=== PATIENT | female | born 1970 | race Caucasian/White ===

== ENCOUNTER 2019-11-08 15:20 | Emergency (ER) | payer MEDICAID, SELFPAY ==
[2019-11-08 15:21] VITALS: BP 126/77; PULSE 70; RESP 16; TEMP 36.8; O2SAT 99; BMI 22.8
[2019-11-08 15:27] VITALS: BP 126/77; PULSE 73; RESP 18; O2SAT 100
--- NOTE | 2019-11-08 15:43 | W.ED.FEVER ---
Documented by User: Olena Garcia MD 11/09/19 06:10 HPI - Fever General: Chief Complaint: Fever Stated Complaint: INCREASED TEMP Time Seen by Provider: 11/08/19 15:23 History of Present Illness: HPI Narrative: This patient is a 49-year-old female presenting today with a reported fever of 106.8 off and on since Monday night. She reports that a few weeks ago she had a tooth that broke off and is infected. She said the whole side of her face on the left became swollen and there was pus coming out of the broken tooth. She took some fish amoxicillin for this infection. She also notes that she gave some of the fish amoxicillin to her dog who had an infection on his paw as well as his tail. She did this because she was not able to get to the doctor's office for her tooth. She did get her dog to the healthcare [facility] pricing [facility] and was told to stop giving him the fish amoxicillin in the back gave her some other medicine. The vet told her that the dog had a blood infection and that it might be contagious. Patient notes that she does not have any running water and has not been able to wash her hands like she normally would. She did get herself to the doctor on Monday and had a test for COVID. She was told she would get the results back in 12 days. She says that when she arrived at the doctor's office her temperature was below normal but within 30 minutes it was 106.8. She says that the doctor wanted her to come to the ER in an ambulance because of the fever however the patient had to go home and take care of her dog. She was finally able to get someone to watch her dog today and so presented to the hospital for evaluation. Her tooth is better but still has some discomfort and swelling. She says that she took ibuprofen about 30 minutes before she called the ambulance today. She is afebrile here as she was in the ambulance. She denies cough. She does have shortness of breath and pain on the left side of her chest. She denies nausea, vomiting, diarrhea. She denies urinary symptoms. She denies her skin rash. She denies headache. MD elicited complaint: fever and malaise Onset (ago): day(s) (5) Measured temperature: 106.8 F (Per patient her temperature has been this high at home and it was also this high at the doctor's office.) Context: recent antibiotic use (Fish amoxicillin) Associated symptoms: Reports chills and chest pain; Deny abdominal pain, flank pain, headache(s), nausea or vomiting Review of Systems General: Reports: 10 or more systems reviewed and unremarkable except in HPI and below Const: Reports: fever(s), chills and malaise; Denies: fatigue Eyes: Denies: change in vision ENMT: Denies: odynophagia Card: Reports: chest pain; Denies: swelling of feet/ankles Resp: Reports: dyspnea; Denies: productive cough or non-productive cough GI: Denies: abdominal pain, nausea or vomiting : Denies: flank pain or difficulty voiding Musc: Denies: neck pain or back pain Skin/Breast: Denies: rash Neuro: Denies: headache(s), numbness in extremities or weakness in extremities Jeison/Lymph: Denies: easy bruising or easy bleeding Physical Exam Const: COMMON NORMALS: no acute distress, patient oriented x3, no limitations and alert GENERAL APPEARANCE: cooperative and comfortable HENMT: HEAD & SCALP: normal to inspection FACE & SINUS: normal facial exam Eye: GENERAL EYE: appearance normal, both eyes and all related structures Neck/C-Spine: COMMON NORMALS: supple, no meningeal signs and no JVD Chest: COMMONS NORMALS: normal inspection of the chest Resp: COMMON NORMALS: normal respiratory effort, No use of accessory muscles and clear to auscultation bilaterally AUSCULTATION: clear to auscultation bilaterally Cardio: COMMON NORMALS: no JVD, regular rate, regular rhythm and No murmurs present (Cardio) RATE: regular rate RHYTHM: regular rhythm GI: COMMON NORMALS: Normal to inspection, nondistended, normoactive bowel sounds present, Soft to palpation and non-tender INSPECTION: Yes normal to inspection AUSCULTATION: Yes normoactive bowel sounds PALPATION: Yes Soft to palpation Back/Pelvis: COMMON NORMALS: thoracic and lumbar spine normal to inspection Extremity: COMMON NORMALS: normal to inspection Neuro: COMMON NORMALS: patient oriented x3, moves all extremities, no focal motor deficits and no sensory deficits noted SENSORIUM/ORIENTATION: Yes alert MENINGEAL SIGNS: Yes no meningeal signs Psych: COMMON NORMALS: mental status grossly normal, cooperative and normal affect Skin: COMMON NORMALS: no rashes or lesions noted and turgor normal GENERAL SKIN EXAM: no rashes or lesions noted and turgor normal Course Vital Signs: Vital signs: Vital Signs Temperature 76 F L 11/08/19 20:41 Pulse Rate 87 11/08/19 18:55 Respiratory Rate 16 11/08/19 20:41 Blood Pressure 128/84 11/08/19 20:41 Pulse Oximetry 97 11/08/19 20:41 MDM - Fever Lab Data: Labs: Lab Results 11/08/19 11/08/19 11/08/19 Range/Units 16:08 16:08 16:08 WBC 6.8 (4.0-10.0) 10^3/ uL RBC 4.35 (4.1-5.3) 10^6/u L Hgb 13.0 (11.5-15.3) g/dL Hct 40.8 (37.0-47.0) % MCV 93.8 (81-99) fL MCH 29.9 (28.0-34.0) pg MCHC 31.9 (30.0-36.0) g/dL RDW 13.2 (12.1-15.1) % Plt Count 250 (130-400) 10^3/c mm MPV 10.0 (7.4-10.4) fL Neut % (Auto) 41.3 % Lymph % (Auto) 48.0 % Garden % (Auto) 9.0 % Eos % (Auto) 0.9 % Baso % (Auto) 0.7 % Neut # (Auto) 2.80 (1.8-7.7) 10^3/u L Lymph # (Auto) 3.3 (0.8-4.8) 10^3/u L Garden # (Auto) 0.6 (0.2-0.9) 10^3/u L Eos # (Auto) 0.1 (0.0-0.8) 10^3/u L Baso # (Auto) 0.1 (0.0-0.1) 10^3/u L Nucleated RBC % (a uto) 0 % Nucleated RBCs # 0.0 /100WBC ESR (0-15) mm/hr Sodium 139 (136-145) mmol/L Potassium 3.8 (3.5-5.1) mmol/L Chloride 104 (98-107) mmol/L Carbon Dioxide 26 (22-29) mmol/L Anion Gap 12.8 (5-19) BUN 8 (6-20) mg/dL Creatinine 0.7 (0.5-0.9) mg/dL GFR Calculation 89.7 L (90-130) mL/min Glucose 103 (65-115) mg/dL Calculated Osmolal ity 284 L (285-295) mOsm/k g Lactate 0.6 (0.5-2.2) mmol/L Calcium 9.3 (8.5-10.5) mg/dL Total Bilirubin 0.2 (0.15-1.2) mg/dL AST 21 (0-32) U/L ALT 15 (0-33) U/L Alkaline Phosphata se 59 (35-105) IU/L C-Reactive Protein 24.1 H (0.0-4.9) mg/L Total Protein 7.2 (6.6-8.7) g/dL Albumin 3.9 (3.5-5.2) g/dL Globulin 3.3 (1.3-4.6) g/dL Procalcitonin 2.42 H (0-0.5) ng/mL Urine Color (Yellow) Urine Appearance (CLEAR) Urine pH (5-7) Ur Specific Gravit y (1.005-1.030) Urine Protein (Negative) Urine Glucose (UA) (Normal) Urine Ketones (Negative) Urine Blood (Negative) Urine Nitrate (Negative) Urine Bilirubin (NEGATIVE) Prot Sulfosalicyli c Acd (Negative) Urine Urobilinogen (Negative) mg/dL Ur Leukocyte Reyna ase (Negative) 11/08/19 11/08/19 Range/Units 16:08 17:23 WBC (4.0-10.0) 10^3/ uL RBC (4.1-5.3) 10^6/u L Hgb (11.5-15.3) g/dL Hct (37.0-47.0) % MCV (81-99) fL MCH (28.0-34.0) pg MCHC (30.0-36.0) g/dL RDW (12.1-15.1) % Plt Count (130-400) 10^3/c mm MPV (7.4-10.4) fL Neut % (Auto) % Lymph % (Auto) % Garden % (Auto) % Eos % (Auto) % Baso % (Auto) % Neut # (Auto) (1.8-7.7) 10^3/u L Lymph # (Auto) (0.8-4.8) 10^3/u L Garden # (Auto) (0.2-0.9) 10^3/u L Eos # (Auto) (0.0-0.8) 10^3/u L Baso # (Auto) (0.0-0.1) 10^3/u L Nucleated RBC % (a uto) % Nucleated RBCs # /100WBC ESR 31 H (0-15) mm/hr Sodium (136-145) mmol/L Potassium (3.5-5.1) mmol/L Chloride (98-107) mmol/L Carbon Dioxide (22-29) mmol/L Anion Gap (5-19) BUN (6-20) mg/dL Creatinine (0.5-0.9) mg/dL GFR Calculation (90-130) mL/min Glucose (65-115) mg/dL Calculated Osmolal ity (285-295) mOsm/k g Lactate (0.5-2.2) mmol/L Calcium (8.5-10.5) mg/dL Total Bilirubin (0.15-1.2) mg/dL AST (0-32) U/L ALT (0-33) U/L Alkaline Phosphata se (35-105) IU/L C-Reactive Protein (0.0-4.9) mg/L Total Protein (6.6-8.7) g/dL Albumin (3.5-5.2) g/dL Globulin (1.3-4.6) g/dL Procalcitonin (0-0.5) ng/mL Urine Color Yellow (Yellow) Urine Appearance Clear (CLEAR) Urine pH 8 H (5-7) Ur Specific Gravit y 1.010 (1.005-1.030) Urine Protein Neg (Negative) Urine Glucose (UA) Norm (Normal) Urine Ketones Negative (Negative) Urine Blood Neg (Negative) Urine Nitrate Negative (Negative) Urine Bilirubin Neg (NEGATIVE) Prot Sulfosalicyli c Acd Negative (Negative) Urine Urobilinogen Norm (Negative) mg/dL Ur Leukocyte Reyna ase Negative (Negative) Discharge Plan Discharge Patient Disposition: Home, Self-Care Clinical Impression: Fever of unknown origin Condition: Stable Prescriptions: New Levaquin 500 mg tablet 500 mg PO Q24H 7 Days Qty: 7 RF: 0 Hamlet 5-325 mg tablet 1 tab PO Q8H PRN (Reason: pain) Qty: 7 RF: 0 No Action Aspir-81 81 mg Tablet,Delayed Release (Dr/Ec) 81 mg PO DAILY RF: 0 Adult Multivitamin Gummies 200 mcg Tablet,Chewable 400 mcg PO DAILY RF: 0 melatonin 10 mg Tablet 20 mg PO BEDTIME RF: 0 potassium chloride 10 mEq Tablet Extended Release 10 meq PO DAILY PRN (Reason: unknown) RF: 0 Lasix 20 mg Tablet 20 mg PO DAILY PRN (Reason: Edema) RF: 0 ProAir HFA 90 mcg/actuation Hfa Aerosol Inhaler 2 puff INHALATION Q4H PRN (Reason: Shortness Of Breath) RF: 0 Excedrin Migraine 250-250-65 mg Tablet 3 - 4 tab PO PRN RF: 0 Fish Amoxil 500 mg PO BID RF: 0 Discharge Orders: Discharge Order (Routine); Ordered 11/08/19 Ordered By: Henri Jimenes Discharge Diet: Advance as tolerated Discharge Activity: Increase activity as tolerated Patient Instructions: Fever - Adult Activity Restrictions/Additional Instructions: Return or see your physician for continued fevers despite 2-3 doses of antibiotics, worsening pain despite treatment, other new or concerning symptoms. Discharge Date/Time: 11/08/19 20:44 Coding Level of Care Code ED Calender Operator Helper for g Fwd Exam Comprehensive Documented by User: Henri Jimenes, 11/09/19 00:56 HPI - Fever General: Chief Complaint: Fever Stated Complaint: INCREASED TEMP Time Seen by Provider: 11/08/19 15:23 Course Vital Signs: Vital signs: Vital Signs Temperature 76 F L 11/08/19 20:41 Pulse Rate 87 11/08/19 18:55 Respiratory Rate 16 11/08/19 20:41 Blood Pressure 128/84 11/08/19 20:41 Pulse Oximetry 97 11/08/19 20:41 MDM - Fever MDM Narrative: Medical decision making narrative: 49-year-old female checked out to me by Dr. Garcia she presents with significant left-sided chest pain, and reported temperature above 105 at home. She has had the temperature for several days. Her white blood cell count is 6.8. She does have elevation of her inflammatory markers. This may be because of a tooth infection, although this is less likely. She has been tested for COVID-19. Her chest pain is essentially resolved now. Chest pain was pleuritic in nature. CTA of the chest is ordered. It shows no pulmonary embolism. No infiltrates. No effusions. No pericardial fluid. She does have some pericarinal lymph nodes. Since her inflammatory markers are elevated, and she gives this history of fever, she will be allowed home on a broad-spectrum antibiotic. Levaquin should suffice. Lab Data: Attestation: I reviewed the patient's lab results. Labs: Lab Results 11/08/19 11/08/19 11/08/19 Range/Units 16:08 16:08 16:08 WBC 6.8 (4.0-10.0) 10^3/ uL RBC 4.35 (4.1-5.3) 10^6/u L Hgb 13.0 (11.5-15.3) g/dL Hct 40.8 (37.0-47.0) % MCV 93.8 (81-99) fL MCH 29.9 (28.0-34.0) pg MCHC 31.9 (30.0-36.0) g/dL RDW 13.2 (12.1-15.1) % Plt Count 250 (130-400) 10^3/c mm MPV 10.0 (7.4-10.4) fL Neut % (Auto) 41.3 % Lymph % (Auto) 48.0 % Garden % (Auto) 9.0 % Eos % (Auto) 0.9 % Baso % (Auto) 0.7 % Neut # (Auto) 2.80 (1.8-7.7) 10^3/u L Lymph # (Auto) 3.3 (0.8-4.8) 10^3/u L Garden # (Auto) 0.6 (0.2-0.9) 10^3/u L Eos # (Auto) 0.1 (0.0-0.8) 10^3/u L Baso # (Auto) 0.1 (0.0-0.1) 10^3/u L Nucleated RBC % (a uto) 0 % Nucleated RBCs # 0.0 /100WBC ESR (0-15) mm/hr Sodium 139 (136-145) mmol/L Potassium 3.8 (3.5-5.1) mmol/L Chloride 104 (98-107) mmol/L Carbon Dioxide 26 (22-29) mmol/L Anion Gap 12.8 (5-19) BUN 8 (6-20) mg/dL Creatinine 0.7 (0.5-0.9) mg/dL GFR Calculation 89.7 L (90-130) mL/min Glucose 103 (65-115) mg/dL Calculated Osmolal ity 284 L (285-295) mOsm/k g Lactate 0.6 (0.5-2.2) mmol/L Calcium 9.3 (8.5-10.5) mg/dL Total Bilirubin 0.2 (0.15-1.2) mg/dL AST 21 (0-32) U/L ALT 15 (0-33) U/L Alkaline Phosphata se 59 (35-105) IU/L C-Reactive Protein 24.1 H (0.0-4.9) mg/L Total Protein 7.2 (6.6-8.7) g/dL Albumin 3.9 (3.5-5.2) g/dL Globulin 3.3 (1.3-4.6) g/dL Procalcitonin 2.42 H (0-0.5) ng/mL Urine Color (Yellow) Urine Appearance (CLEAR) Urine pH (5-7) Ur Specific Gravit y (1.005-1.030) Urine Protein (Negative) Urine Glucose (UA) (Normal) Urine Ketones (Negative) Urine Blood (Negative) Urine Nitrate (Negative) Urine Bilirubin (NEGATIVE) Prot Sulfosalicyli c Acd (Negative) Urine Urobilinogen (Negative) mg/dL Ur Leukocyte Reyna ase (Negative) 11/08/19 11/08/19 Range/Units 16:08 17:23 WBC (4.0-10.0) 10^3/ uL RBC (4.1-5.3) 10^6/u L Hgb (11.5-15.3) g/dL Hct (37.0-47.0) % MCV (81-99) fL MCH (28.0-34.0) pg MCHC (30.0-36.0) g/dL RDW (12.1-15.1) % Plt Count (130-400) 10^3/c mm MPV (7.4-10.4) fL Neut % (Auto) % Lymph % (Auto) % Garden % (Auto) % Eos % (Auto) % Baso % (Auto) % Neut # (Auto) (1.8-7.7) 10^3/u L Lymph # (Auto) (0.8-4.8) 10^3/u L Garden # (Auto) (0.2-0.9) 10^3/u L Eos # (Auto) (0.0-0.8) 10^3/u L Baso # (Auto) (0.0-0.1) 10^3/u L Nucleated RBC % (a uto) % Nucleated RBCs # /100WBC ESR 31 H (0-15) mm/hr Sodium (136-145) mmol/L Potassium (3.5-5.1) mmol/L Chloride (98-107) mmol/L Carbon Dioxide (22-29) mmol/L Anion Gap (5-19) BUN (6-20) mg/dL Creatinine (0.5-0.9) mg/dL GFR Calculation (90-130) mL/min Glucose (65-115) mg/dL Calculated Osmolal ity (285-295) mOsm/k g Lactate (0.5-2.2) mmol/L Calcium (8.5-10.5) mg/dL Total Bilirubin (0.15-1.2) mg/dL AST (0-32) U/L ALT (0-33) U/L Alkaline Phosphata se (35-105) IU/L C-Reactive Protein (0.0-4.9) mg/L Total Protein (6.6-8.7) g/dL Albumin (3.5-5.2) g/dL Globulin (1.3-4.6) g/dL Procalcitonin (0-0.5) ng/mL Urine Color Yellow (Yellow) Urine Appearance Clear (CLEAR) Urine pH 8 H (5-7) Ur Specific Gravit y 1.010 (1.005-1.030) Urine Protein Neg (Negative) Urine Glucose (UA) Norm (Normal) Urine Ketones Negative (Negative) Urine Blood Neg (Negative) Urine Nitrate Negative (Negative) Urine Bilirubin Neg (NEGATIVE) Prot Sulfosalicyli c Acd Negative (Negative) Urine Urobilinogen Norm (Negative) mg/dL Ur Leukocyte Reyna ase Negative (Negative) Discharge Plan Discharge Patient Disposition: Home, Self-Care Clinical Impression: Fever of unknown origin Condition: Stable Prescriptions: New Levaquin 500 mg tablet 500 mg PO Q24H 7 Days Qty: 7 RF: 0 Hamlet 5-325 mg tablet 1 tab PO Q8H PRN (Reason: pain) Qty: 7 RF: 0 No Action Aspir-81 81 mg Tablet,Delayed Release (Dr/Ec) 81 mg PO DAILY RF: 0 Adult Multivitamin Gummies 200 mcg Tablet,Chewable 400 mcg PO DAILY RF: 0 melatonin 10 mg Tablet 20 mg PO BEDTIME RF: 0 potassium chloride 10 mEq Tablet Extended Release 10 meq PO DAILY PRN (Reason: unknown) RF: 0 Lasix 20 mg Tablet 20 mg PO DAILY PRN (Reason: Edema) RF: 0 ProAir HFA 90 mcg/actuation Hfa Aerosol Inhaler 2 puff INHALATION Q4H PRN (Reason: Shortness Of Breath) RF: 0 Excedrin Migraine 250-250-65 mg Tablet 3 - 4 tab PO PRN RF: 0 Fish Amoxil 500 mg PO BID RF: 0 Discharge Orders: Discharge Order (Routine); Ordered 11/08/19 Ordered By: Henri Jimenes Discharge Diet: Advance as tolerated Discharge Activity: Increase activity as tolerated Patient Instructions: Fever - Adult Activity Restrictions/Additional Instructions: Return or see your physician for continued fevers despite 2-3 doses of antibiotics, worsening pain despite treatment, other new or concerning symptoms. Discharge Date/Time: 11/08/19 20:44 Coding Level of Care Code ED Calender Operator Helper for Chg Fwd Exam Comprehensive
[2019-11-08 16:21] LABS: Basophils # 0.1 10^3/uL (0.0-0.1); Basophils % 0.7 %; Eosinophils # 0.1 10^3/uL (0.0-0.8); Eosinophils % 0.9 %; Hematocrit 40.8 % (37.0-47.0); Lymphocytes # 3.3 10^3/uL (0.8-4.8); Mean Corpuscular HGB Conc 31.9 g/dL (30.0-36.0); Mean Corpuscular Hemoglobin 29.9 pg (28.0-34.0); Mean Corpuscular Volume 93.8 fL (81-99); Monocytes # 0.6 10^3/uL (0.2-0.9); Neutrophils % 41.3 %; Nucleated Red Blood Cells % 0 %; Platelet Count 250 10^3/cmm (130-400); Red Blood Count 4.35 10^6/uL (4.1-5.3); Red Cell Distribution Width 13.2 % (12.1-15.1); White Blood Count 6.8 10^3/uL (4.0-10.0)
[2019-11-08 16:33] LABS: Lactate (Lactic Acid level) 0.6 mmol/L (0.5-2.2)
[2019-11-08 16:42] LABS: Procalcitonin 2.42 ng/mL (0-0.5)
[2019-11-08 16:54] LABS: Alanine Aminotransferase 15 U/L (0-33); Albumin Level 3.9 g/dL (3.5-5.2); Alkaline Phosphatase 59 IU/L (35-105); Anion Gap 12.8 (5-19); Aspartate Amino Transferase 21 U/L (0-32); Blood Urea Nitrogen 8 mg/dL (6-20); C Reactive Protein 24.1 mg/L (0.0-4.9); Calcium 9.3 mg/dL (8.5-10.5); Carbon Dioxide 26 mmol/L (22-29); Chloride 104 mmol/L (98-107); Globulin 3.3 g/dL (1.3-4.6); Glomerular Filtration Rate 89.7 mL/min (90-130); Glucose 103 mg/dL (65-115); Osmolality Calculated 284 mOsm/kg (285-295); Potassium 3.8 mmol/L (3.5-5.1); Sodium 139 mmol/L (136-145); Total Bilirubin 0.2 mg/dL (0.15-1.2); Total Protein 7.2 g/dL (6.6-8.7)
--- NOTE | 2019-11-08 16:55 | XRR_ITS ---
PROCEDURE INFORMATION: Exam: XR Chest, 1 View Exam date and time: 11/08/2019 5:08 PM Age: 49 years old Clinical indication: Chest pain; Additional info: Fever, chest pain TECHNIQUE: Imaging protocol: XR of the chest Views: 1 view. COMPARISON: No relevant prior studies available. FINDINGS: Lungs: Unremarkable. No consolidation. Pleural space: Unremarkable. No pleural effusion. No pneumothorax. Heart/Mediastinum: Unremarkable. No cardiomegaly. Bones/joints: Unremarkable. XR/XR chest 1V portable [id number] IMPRESSION: No acute findings.
[2019-11-08 17:34] LABS: Add Urine Microscopic? NO
--- NOTE | 2019-11-08 17:42 | CTR_ITS ---
PROCEDURE INFORMATION: Exam: CT Angiography Chest With Contrast Exam date and time: 11/08/2019 7:02 PM Age: 49 years old Clinical indication: Left-sided chest pain; Patient HX: C/O fever, SOB and L upper cp; Additional info: Fever, chest pain TECHNIQUE: Imaging protocol: Computed tomographic angiography of the chest with intravenous contrast. 3D rendering: MIP and/or 3D reconstructed images were created by the technologist. Radiation optimization: All CT scans at this facility use at least one of these dose optimization techniques: automated exposure control; mA and/or kV adjustment per patient size (includes targeted exams where dose is matched to clinical indication); or iterative reconstruction. Contrast material: OMNI 350; Contrast volume: 95 ml; Contrast route: INTRAVENOUS (IV); COMPARISON: CR XR chest 1V portable [id number] 11/08/2019 4:56 PM RADIATION DOSE METRICS: Total DLP (mGy-cm): 484.94 FINDINGS: There are mild degenerative changes of the spine. There is dependent atelectasis. There is no focal consolidation. There is no pleural effusion. There is no pneumothorax. There are no suspicious pulmonary nodules. The central airways are normal in caliber. There is a 9 mm nodule with partial rim calcification in the left lobe of the thyroid gland. This is likely benign. Given its small size no further follow-up is required. There is no axillary adenopathy. There is an enlarged precarinal lymph node measuring approximately 2 cm. There is some small lymph nodes seen along the AP window. 15 mm right hilar lymph node is also present. Small left hilar lymph nodes are present. Calcified subcarinal lymph nodes are present. Interrogation of the pulmonary arteries in multiple planes shows no evidence for pulmonary embolism. The aorta is normal in caliber with no evidence for aneurysm or dissection. The heart is normal in size. There is no evidence for right heart failure. The upper abdominal structures are unremarkable. CT/CT angio chest PE protcl [id number] IMPRESSION: 1. No evidence for pulmonary embolism. 2. No focal infiltrates. 3. Enlarged precarinal lymph node as well as prominent right hilar lymph node. Radiation Dose CTDIVOL = (mGy): DLP = 484.94 (mGy-cm)
[2019-11-08 17:43] LABS: Bilirubin Urine Neg (NEGATIVE); Blood Urine Neg (Negative); Glucose Urine UA Norm (Normal); Ketones Urine Negative (Negative); Leukocyte Esterase Urine Negative (Negative); Nitrate Urine Negative (Negative); Protein Urine Neg (Negative); Sulfosalicylic Acid Urine Negative (Negative); Urine Appearance Clear (CLEAR); Urine Color Yellow (Yellow); Urobilinogen Urine Norm (Negative); pH Urine 8 (5-7)
[2019-11-08 17:46] LABS: Erythrocyte Sedimentation Rate 31 mm/hr (0-15)
[2019-11-08 18:40] VITALS: RESP 18; O2SAT 97
[2019-11-08] MEDS: ondansetron 2 mg/ML SDV 2 mL 4 MG IVP (18:40)
[2019-11-08] MEDS: HYDROmorphone 1 mg/mL INJ 1 mL IVP (18:40)
[2019-11-08 18:41] VITALS: BP 133/88; PULSE 65; RESP 18; O2SAT 97
[2019-11-08 18:55] VITALS: BP 133/88; PULSE 87; RESP 18; O2SAT 94
--- NOTE | 2019-11-08 19:05 | PC.NURSE ---
Introduced myself to patient, resting in bed with no complaints at this time. Awaiting results of ct. Bed in low position with call light in reach.
[2019-11-08] MEDS: iohexol 350 mg/mL 100 mL Btl IV (19:13)
[2019-11-08 20:41] VITALS: BP 128/84; RESP 16; TEMP 24.4; O2SAT 97
[2019-11-08] MEDS: levoFLOXacin 500 mg Tablet PO (20:43)
== END 2019-11-08 20:44 | disposition home or self-care (01) ==
PROVIDERS: Emergency Medicine; Emergency Provider Emergency Medicine
DX: R50.9 Fever, unspecified (principal); Z79.82 Long term (current) use of aspirin
CPT/HCPCS: 12345; 71045; 71275; 80053; 81003; 83605; 84145; 85025; 85651; 86140; 87040; 87205; 96374; 96375; 99283; 99284; J1170; J2405; Q9967

== ENCOUNTER 2019-12-24 16:34 | Emergency (ER) | payer MEDICAID, SELFPAY ==
[2019-12-24 17:31] VITALS: BP 138/88; PULSE 91; RESP 18; TEMP 36.8; O2SAT 98; BMI 21.9
--- NOTE | 2019-12-24 18:09 | XRR_ITS ---
PROCEDURE INFORMATION: Exam: XR Chest, 1 View Exam date and time: 12/24/2019 6:29 PM Age: 49 years old Clinical indication: Fever; Additional info: Cp TECHNIQUE: Imaging protocol: XR of the chest Views: Frontal portable upright view of the chest. COMPARISON: CR XR chest 1V portable [id number] 11/08/2019 4:56 PM FINDINGS: Lungs: The lungs are otherwise clear bilaterally. The pulmonary vasculature is normal. Pleural space: No pleural effusion. No pneumothorax. Heart/Mediastinum: The heart is normal in size and contour. Mediastinum: Stable. Bones/joints: Stable. Other findings: Mild pulmonary hyperexpansion. XR/XR chest 1V portable [id number] IMPRESSION: 1. Mild pulmonary hyperexpansion. 2. Otherwise, no acute cardiopulmonary abnormality identified.
--- NOTE | 2019-12-24 18:10 | ECG_ITS ---
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 Measurements Intervals [place] Rate: 93 P: 74 [place]: 146 QRS: 80 QRSD: 90 T: 104 QT: 333 QTc: 414 Interpretive Statements SINUS RHYTHM POSSIBLE RIGHT ATRIAL ENLARGEMENT [0.25mV P WAVE] LEFT ATRIAL ENLARGEMENT [-0.15mV P WAVE IN V1/V2] MINIMAL ST DEPRESSION [0.025+ mV ST DEPRESSION] No previous ECG available for comparison Electronically Signed On 12-25-2019 9:53:30 CDT by Yinka Perez M.D. [id number]
[2019-12-24 19:39] LABS: Basophils % 0.4 %; Eosinophils % 0.3 %; Hematocrit 46.1 % (37.0-47.0); Hemoglobin 14.5 g/dL (11.5-15.3); Lymphocytes # 2.9 10^3/uL (0.8-4.8); Lymphocytes % 32.8 %; Mean Corpuscular HGB Conc 31.5 g/dL (30.0-36.0); Mean Corpuscular Hemoglobin 30.4 pg (28.0-34.0); Mean Corpuscular Volume 96.6 fL (81-99); Mean Platelet Volume 9.3 fL (7.4-10.4); Monocytes # 0.9 10^3/uL (0.2-0.9); Monocytes % 10.4 %; Neutrophils # 4.98 10^3/uL (1.8-7.7); Nucleated Red Blood Cells % 0 %; Platelet Count 285 10^3/cmm (130-400); Red Blood Count 4.77 10^6/uL (4.1-5.3); White Blood Count 8.9 10^3/uL (4.0-10.0)
[2019-12-24 19:59] LABS: Alanine Aminotransferase 11 U/L (0-33); Albumin Level 4.1 g/dL (3.5-5.2); Alkaline Phosphatase 72 IU/L (35-105); Anion Gap 13.9 (5-19); Aspartate Amino Transferase 19 U/L (0-32); Blood Urea Nitrogen 11 mg/dL (6-20); Calcium 9.6 mg/dL (8.5-10.5); Carbon Dioxide 26 mmol/L (22-29); Chloride 101 mmol/L (98-107); Creatinine Clr Calc Pharmacy 114.1123; Glomerular Filtration Rate 107.2 mL/min (90-130); Glucose 84 mg/dL (65-115); Osmolality Calculated 279 mOsm/kg (285-295); Potassium 3.9 mmol/L (3.5-5.1); Sodium 137 mmol/L (136-145); Total Bilirubin 0.3 mg/dL (0.15-1.2); Total Protein 7.1 g/dL (6.6-8.7)
[2019-12-24 20:01] LABS: Troponin(5th) Baseline 6 ng/L (0-10)
--- NOTE | 2019-12-24 20:42 | W.ED.CHESTPA ---
HPI - Chest Pain General: Chief Complaint: Chest Pain Stated Complaint: cp Time Seen by Provider: 12/24/19 19:09 History of Present Illness: HPI narrative: This patient is a 49-year-old female who comes in today complaining of fevers. She is also complaining of chest pain and jaw pain. She says these are the same symptoms she came in for about a month ago. At that time and again today she reports temperatures at home of 107.8. At that time she was worked up including blood cultures. There was concern for endocarditis and for blood cultures were done. 3 bottles were negative and 1 grew probable contaminants. She was called back to come in for reevaluation given the positive blood cultures but she did not come back until tonight. She is tearful, anxious, certain that she has a heart infection. Her vital signs are normal. She has a primary care doctor but she was not able to get in to see her. MD complaint: chest pain Onset (ago): week(s) (5) Timing of current episode: episodic Prior episodes: Yes Onset: during rest Pain location: parasternal Pain radiation: none Severity: severe Quality: sharp (Sharp intermittent stabbing pains) Relieving factors: nothing Associated symptoms: Reports fever(s) and nausea; Deny abdominal pain, dyspnea or vomiting Review of Systems General: Reports: 10 or more systems reviewed and unremarkable except in HPI and below Const: Reports: fever(s), chills, fatigue and malaise Eyes: Denies: change in vision ENMT: Denies: odynophagia Card: Reports: chest pain; Denies: swelling of feet/ankles Resp: Denies: dyspnea, productive cough or non-productive cough GI: Reports: nausea; Denies: abdominal pain or vomiting : Denies: flank pain or difficulty voiding Musc: Denies: neck pain or back pain Skin/Breast: Denies: rash Neuro: Denies: headache(s), numbness in extremities or weakness in extremities Psych: Reports: anxiety Jeison/Lymph: Denies: easy bruising or easy bleeding Physical Exam Narrative: EXAM NARRATIVE: Tearful and anxious Const: COMMON NORMALS: no acute distress, patient oriented x3, no limitations and alert GENERAL APPEARANCE: cooperative HENMT: HEAD & SCALP: normal to inspection FACE & SINUS: normal facial exam TEETH & GINGIVA IMAGES: 1. Tooth broken off at the gum, some mild erythema around the area. Eye: GENERAL EYE: appearance normal, both eyes and all related structures Neck/C-Spine: COMMON NORMALS: supple, no meningeal signs and no JVD Chest: COMMONS NORMALS: normal inspection of the chest Resp: COMMON NORMALS: normal respiratory effort, No use of accessory muscles and clear to auscultation bilaterally AUSCULTATION: clear to auscultation bilaterally Cardio: COMMON NORMALS: no JVD, regular rate, regular rhythm and No murmurs present (Cardio) RATE: regular rate RHYTHM: regular rhythm GI: COMMON NORMALS: Normal to inspection, nondistended, normoactive bowel sounds present, Soft to palpation and non-tender INSPECTION: Yes normal to inspection AUSCULTATION: Yes normoactive bowel sounds PALPATION: Yes Soft to palpation Back/Pelvis: COMMON NORMALS: thoracic and lumbar spine normal to inspection Extremity: COMMON NORMALS: normal to inspection Neuro: COMMON NORMALS: patient oriented x3, moves all extremities, no focal motor deficits and no sensory deficits noted SENSORIUM/ORIENTATION: Yes alert MENINGEAL SIGNS: Yes no meningeal signs Psych: COMMON NORMALS: mental status grossly normal, cooperative and normal affect Skin: COMMON NORMALS: no rashes or lesions noted and turgor normal GENERAL SKIN EXAM: no rashes or lesions noted and turgor normal Course ED course: This patient's prior visit was evaluated and she had 1 out of 4 blood cultures positive for contaminants. Her work-up today is reassuring. I will treat her for probable dental abscess where she has a broken off tooth. And she can follow-up with her dentist or primary care doctor. She was quite irate that she had been called to come back and that now we were discharging her. I tried to explain that to her and she just yelled at me and would not listen. Vital Signs: Vital signs: Vital Signs Temperature 98.2 F 12/24/19 17:31 Pulse Rate 88 12/24/19 21:44 Respiratory Rate 16 12/24/19 21:44 Blood Pressure 132/70 12/24/19 21:44 Pulse Oximetry 98 12/24/19 21:44 MDM - Chest Pain Lab Data: Labs: Lab Results 12/24/19 12/24/19 12/24/19 Range/Units 19:32 19:32 19:32 WBC 8.9 (4.0-10.0) 10^3/ uL RBC 4.77 (4.1-5.3) 10^6/u L Hgb 14.5 (11.5-15.3) g/dL Hct 46.1 (37.0-47.0) % MCV 96.6 (81-99) fL MCH 30.4 (28.0-34.0) pg MCHC 31.5 (30.0-36.0) g/dL RDW 13.0 (12.1-15.1) % Plt Count 285 (130-400) 10^3/c mm MPV 9.3 (7.4-10.4) fL Neut % (Auto) 56.0 % Lymph % (Auto) 32.8 % [place] % (Auto) 10.4 % Eos % (Auto) 0.3 % Baso % (Auto) 0.4 % Neut # (Auto) 4.98 (1.8-7.7) 10^3/u L Lymph # (Auto) 2.9 (0.8-4.8) 10^3/u L [place] # (Auto) 0.9 (0.2-0.9) 10^3/u L Eos # (Auto) 0.0 (0.0-0.8) 10^3/u L Baso # (Auto) 0.0 (0.0-0.1) 10^3/u L Nucleated RBC % (a uto) 0 % Nucleated RBCs # 0.0 /100WBC Sodium 137 (136-145) mmol/L Potassium 3.9 (3.5-5.1) mmol/L Chloride 101 (98-107) mmol/L Carbon Dioxide 26 (22-29) mmol/L Anion Gap 13.9 (5-19) BUN 11 (6-20) mg/dL Creatinine 0.6 (0.5-0.9) mg/dL GFR Calculation 107.2 (90-130) mL/min Glucose 84 (65-115) mg/dL Calculated Osmolal ity 279 L (285-295) mOsm/k g Calcium 9.6 (8.5-10.5) mg/dL Total Bilirubin 0.3 (0.15-1.2) mg/dL AST 19 (0-32) U/L ALT 11 (0-33) U/L Alkaline Phosphata se 72 (35-105) IU/L Troponin T Baselin e 6 (0-10) ng/L Troponin T 120 Min [place] (0-10) ng/L Delta Troponin T (0-10) ABS# C-Reactive Protein 13.5 H (0.0-4.9) mg/L Total Protein 7.1 (6.6-8.7) g/dL Albumin 4.1 (3.5-5.2) g/dL Globulin 3.0 (1.3-4.6) g/dL 12/24/19 Range/Units 21:48 WBC (4.0-10.0) 10^3/ uL RBC (4.1-5.3) 10^6/u L Hgb (11.5-15.3) g/dL Hct (37.0-47.0) % MCV (81-99) fL MCH (28.0-34.0) pg MCHC (30.0-36.0) g/dL RDW (12.1-15.1) % Plt Count (130-400) 10^3/c mm MPV (7.4-10.4) fL Neut % (Auto) % Lymph % (Auto) % [place] % (Auto) % Eos % (Auto) % Baso % (Auto) % Neut # (Auto) (1.8-7.7) 10^3/u L Lymph # (Auto) (0.8-4.8) 10^3/u L [place] # (Auto) (0.2-0.9) 10^3/u L Eos # (Auto) (0.0-0.8) 10^3/u L Baso # (Auto) (0.0-0.1) 10^3/u L Nucleated RBC % (a uto) % Nucleated RBCs # /100WBC Sodium (136-145) mmol/L Potassium (3.5-5.1) mmol/L Chloride (98-107) mmol/L Carbon Dioxide (22-29) mmol/L Anion Gap (5-19) BUN (6-20) mg/dL Creatinine (0.5-0.9) mg/dL GFR Calculation (90-130) mL/min Glucose (65-115) mg/dL Calculated Osmolal ity (285-295) mOsm/k g Calcium (8.5-10.5) mg/dL Total Bilirubin (0.15-1.2) mg/dL AST (0-32) U/L ALT (0-33) U/L Alkaline Phosphata se (35-105) IU/L Troponin T Baselin e (0-10) ng/L Troponin T 120 Min [place] 6.00 (0-10) ng/L Delta Troponin T 0 (0-10) ABS# C-Reactive Protein (0.0-4.9) mg/L Total Protein (6.6-8.7) g/dL Albumin (3.5-5.2) g/dL Globulin (1.3-4.6) g/dL Discharge Plan Discharge Patient Disposition: Home Clinical Impression: Atypical chest pain, Dental abscess Condition: Stable Prescriptions: New clindamycin HCl 150 mg capsule 300 mg PO Q6H 10 Days Qty: 80 RF: 0 No Action aspirin [Aspir-81] 81 mg Tablet,Delayed Release (Dr/Ec) 81 mg PO DAILY RF: 0 Adult Multivitamin Gummies 200 mcg Tablet,Chewable 400 mcg PO DAILY RF: 0 melatonin 10 mg Tablet 20 mg PO BEDTIME RF: 0 potassium chloride 10 mEq Tablet Extended Release 10 meq PO DAILY PRN (Reason: unknown) RF: 0 furosemide [Lasix] 20 mg Tablet 20 mg PO DAILY PRN (Reason: Edema) RF: 0 albuterol sulfate [ProAir HFA] 90 mcg/actuation Hfa Aerosol Inhaler 2 puff INHALATION Q4H PRN (Reason: Shortness Of Breath) RF: 0 Excedrin Migraine 250-250-65 mg Tablet 3 - 4 tab PO PRN RF: 0 ibuprofen 200 mg Tablet 200 - 400 mg PO Q4H PRN (Reason: Pain) RF: 0 Discharge Orders: Discharge Order (Routine); Ordered 12/24/19 Ordered By: Olena Garcia Discharge Diet: Usual diet Discharge Activity: Resume usual activity Patient Instructions: Dental Abscess (ED) Activity Restrictions/Additional Instructions: Follow-up with your primary care provider for further evaluation of your chest pain. Follow-up with a dentist for management of the broken tooth in your upper jaw. Continue ibuprofen and Tylenol for fevers. Take the antibiotics as prescribed. Discharge Date/Time: 12/24/19 22:42 Coding Level of Care Code ED Auto Glass Technician for Chg Fwd Exam Comprehensive
[2019-12-24 21:44] VITALS: BP 132/70; PULSE 88; RESP 16; O2SAT 98
[2019-12-24 22:14] LABS: Troponin 5 2HR Delta 0 ABS# (0-10)
--- NOTE | 2019-12-24 22:15 | PC.NURSE ---
Patient yelling at Dr. Garcia during discharge instructions. Why did you call me to come in when you won't even give me pain medicine . Dr. Garcia in the patient room de-escalating the patient with security as a standby outside the patient room.
--- NOTE | 2019-12-24 22:40 | PC.NURSE ---
Unable to perform Discharge VS as patient is uncooperative during discharge instructions. Dr. Radha garcia.
[2019-12-24 22:53] LABS: C Reactive Protein 13.5 mg/L (0.0-4.9)
== END 2019-12-24 22:42 | disposition home or self-care (01) ==
PROVIDERS: Emergency Medicine; Emergency Provider Emergency Medicine
DX: R07.89 Other chest pain (principal); K04.7 Periapical abscess without sinus; Z79.82 Long term (current) use of aspirin
CPT/HCPCS: 12345; 36415; 71045; 80053; 84484; 85025; 86140; 93005; 99283

== ENCOUNTER 2020-08-31 15:07 | Outpatient (CLI) | payer MEDICAID, SELFPAY ==
--- NOTE | 2020-08-31 15:13 | MM_ITS ---
WS: [id number] BILATERAL DIGITAL DIAGNOSTIC MAMMOGRAM MAMMOGRAPHY WITH CAD CLINICAL INFORMATION: LUMP IN RIGHT BREAST. Green drainage left breast. Bilateral nipple discharge. COMPARISON: 2007 TECHNIQUE: Bilateral CC, MLO, and ML views. FINDINGS: Scattered fibroglandular densities bilaterally. Bilateral palpable marker. 3 markers right breast abo ut the areola. Additional marker left breast near the areola. Nodular bilateral breast tissue similar to 2007. Ultrasound is pending. ULTRASOUND BREAST BILATERAL TECHNIQUE: Ultrasound bilateral breast focused area of concern. CLINICAL INFORMATION: LUMP IN RIGHT BREAST COMPARISON: 2007 FINDINGS: Ultrasound both nipples. Mild ductal ectasia in both subareolar locations. No suspicious subareolar l esions to target for biopsy. Several benign incidental cysts visualized in the right breast 11:00 position in the area of palpable abnormality. Clustered cysts measure 9 x 2 x 8 mm. Additional simple cyst or ductal dilatation at th e 4:00 position right breast. Left breast is normal in appearance. No suspicious lesions to target for biopsy. Findings are benign. MM/[place] [id number] IMPRESSION: BI-RADS: 2-Benign FOLLOW UP: 1 Year Follow-up Recommend return to annual screening mammography.
== END 2020-08-31 15:08 | disposition home or self-care (01) ==
LOC: RADSHAW 15:12
PROVIDERS: Visit Provider Nurse Practitioner Family
DX: N63.10 Unspecified lump in the right breast, unspecified quadrant (principal); N64.52 Nipple discharge
CPT/HCPCS: 76641; 77066

== ENCOUNTER → 2021-04-16 13:49 | Outpatient (BNVA) | payer MEDICAID, SELFPAY | PROVIDERS: Visit Provider Nurse Practitioner Family | DX: R30.9 Painful micturition, unspecified (principal); N91.2 Amenorrhea, unspecified | CPT/HCPCS: 81000; 81025 ==

== ENCOUNTER → 2021-05-25 14:42 | Outpatient (BNVA) | payer MEDICAID, SELFPAY | PROVIDERS: PCP Nurse Practitioner Family; Visit Provider Nurse Practitioner Family | DX: Z86.19 Personal history of other infectious and parasitic diseases (principal) | CPT/HCPCS: 87661 ==

== ENCOUNTER 2021-06-20 23:23 | Emergency (ER) | payer MEDICAID, SELFPAY ==
[2021-06-20 23:24] VITALS: BP 116/65; PULSE 69; RESP 18; TEMP 36.5; O2SAT 98; BMI 35.5
--- NOTE | 2021-06-20 23:39 | W.ED.GENADLT ---
HPI - General Adult General: Chief complaint: General Medical Stated complaint: WITHDRAWS FROM METHADONES Time Seen by Provider: 06/20/21 23:28 History of Present Illness: 51-year-old female comes in today for concerns of missing her appointment at the methadone clinic in the morning. Patient reports that her son had borrowed her truck but was not going be able to be home until after her appointment in the morning. Her son then called the ambulance to take bring her to the hospital from her home in [place] so she can make it to her methadone appointment in the morning. Patient appears well. Patient reports some nausea and occasional seizure activity. Patient reports that this is not abnormal for her. Patient responds to questions appropriately. Patient is in no acute distress. Associated symptoms: Reports nausea Review of Systems General: Reports: 10 or more systems reviewed and unremarkable except in HPI and below GI: Reports: nausea and diarrhea [facility] ED PFS: Medical History (Updated 06/20/21 @ 23:40 by KADEN Acuña) History of methamphetamine abuse Hx of thyroid nodule Major depressive disorder, recurrent, unspecified Seizure disorder Social History Smoking and tobacco status: current every day smoker Physical Exam Const: COMMON NORMALS: alert Resp: COMMON NORMALS: normal respiratory effort and clear to auscultation bilaterally AUSCULTATION: clear to auscultation bilaterally Cardio: COMMON NORMALS: regular rate and regular rhythm RATE: regular rate RHYTHM: regular rhythm GI: COMMON NORMALS: Normal to inspection, nondistended, normoactive bowel sounds present, Soft to palpation and non-tender PALPATION: Yes Soft to palpation Extremity: COMMON NORMALS: no pedal edema Neuro: SENSORIUM/ORIENTATION: Yes alert Psych: COMMON NORMALS: cooperative Skin: COMMON NORMALS: no rashes or lesions noted GENERAL SKIN EXAM: no rashes or lesions noted Course Vital Signs: Vital signs: Vital Signs Temperature 97.7 F 06/20/21 23:24 Pulse Rate 69 06/20/21 23:24 Respiratory Rate 18 06/20/21 23:24 Blood Pressure 116/65 06/20/21 23:24 Pulse Oximetry 98 06/20/21 23:24 MDM - General Adult Medical Decision Making Patient comes in today for complaints of not having a ride to her methadone appointment in the morning. Patient denies any concerns other than needing a ride from her home and [facility] to [facility] so she could go to the methadone clinic. On exam patient appears well. Abdomen soft nontender. Skin is warm and dry. Vital signs are normal. Differential diagnosis includes opiate withdrawal, social service concerns, anxiety. No sign of serious illness or injury was noted on exam. Patient was recommended to stay in the lobby until she could go to her appointment in the morning. Patient agreed to plan and need for follow-up or return to the ER for new concerns. Discharge Plan Discharge Patient Disposition: Home Clinical Impression: Methadone maintenance therapy patient Condition: Stable Prescriptions: No Action ciprofloxacin HCl [Cipro] 250 mg tablet 250 mg PO BID 5 Days Qty: 10 0RF nystatin 100,000 unit/mL suspension 100,000 unit PO TID 10 Days Qty: 30 0RF Rx Instructions: administer 1/2 of dose in each side of the mouth metronidazole 500 mg tablet 500 mg PO BID 7 Days Qty: 14 0RF aspirin [Aspir-81] 81 mg Tablet,Delayed Release (Dr/Ec) 81 mg PO DAILY 0RF Adult Multivitamin Gummies 200 mcg Tablet,Chewable 400 mcg PO DAILY 0RF melatonin 10 mg Tablet 20 mg PO BEDTIME 0RF potassium chloride 10 mEq Tablet Extended Release 10 meq PO DAILY PRN (Reason: unknown) 0RF furosemide [Lasix] 20 mg Tablet 20 mg PO DAILY PRN (Reason: Edema) 0RF Rx Instructions: pt states she has this medication but hasnt taken for few days. albuterol sulfate [ProAir HFA] 90 mcg/actuation Hfa Aerosol Inhaler 2 puff INHALATION Q4H PRN (Reason: Shortness Of Breath) 0RF Excedrin Migraine 250-250-65 mg Tablet 3 - 4 tab PO PRN 0RF ibuprofen 200 mg Tablet 200 - 400 mg PO Q4H PRN (Reason: Pain) 0RF Discharge Orders: Discharge ED (Routine); Ordered 06/20/21 Ordered By: Dagoberto Sandoval Referrals: Eli Reina FNP [Primary Care Provider] - Discharge Diet: Usual diet Discharge Activity: Resume usual activity Activity Restrictions/Additional Instructions: Continue routine care. Follow-up with your medical office in the morning for continuation of your methadone therapy. Return to ER for new concerns. Coding Level of Care Code ED Railroad Commissioner for Chg Fwd History Problem Focused Exam Problem Focused Medical Decision Making Straight Forward Time Spent (min) 20
== END 2021-06-20 23:51 | disposition home or self-care (01) ==
PROVIDERS: Emergency Provider Nurse Practitioner Family; PCP Nurse Practitioner Family
DX: F11.20 Opioid dependence, uncomplicated (principal); Z79.82 Long term (current) use of aspirin; F17.210 Nicotine dependence, cigarettes, uncomplicated
CPT/HCPCS: 99281

== ENCOUNTER 2021-06-21 07:52 | Emergency (ER) | payer MEDICAID, SELFPAY ==
[2021-06-21 07:55] VITALS: BP 117/77; PULSE 73; RESP 18; TEMP 36.7; O2SAT 95; BMI 24.2
--- NOTE | 2021-06-21 08:02 | W.ED.GENADLT ---
HPI - General Adult General: Chief complaint: Seizure Stated complaint: SEIZURE Time Seen by Provider: 06/21/21 07:56 History of Present Illness: 51-year-old female was seen earlier today which was brought in by EMS according the note looks like she had just used EMS to get her to [facility] to be seen at the methadone clinic. However the methadone clinic is closed today because of federal holiday. She left the ER was behaving oddly in the waiting room and then was laying in the parking lot at 1 point after being discharged. Evidently after that she went somewhere with her son they try to get to the methadone clinic she tells me opens at 5 AM daily. Patient is tearful her only concern is some find her son and get to the methadone clinic. When I came to the room to examine her she was trying to leave the room we were able to redirect her back to the bed and get her to allow us to examine her. While I specific and complaint again get out of her set her head and neck hurt. She evidently witnessed having a seizure in the vehicle with her son although EMS did not witness the seizure. She is tearful and seems moderately confused here. Onset (ago): minute(s) Location: head and neck Severity: moderate Associated symptoms: Reports confusion and seizures; Deny chest pain, cough, diaphoresis, decreased appetite, dyspnea, fevers/chills, headache(s), malaise, nausea, rash, palpitations, short of breath, syncope, vomiting or weakness Treatments prior to arrival: none Review of Systems General: Reports: ROS unobtainable due to medical condition Const: Denies: malaise or diaphoresis Card: Denies: chest pain, palpitations or syncope Resp: Denies: dyspnea GI: Denies: nausea or vomiting Skin/Breast: Denies: rash Neuro: Reports: confusion; Denies: headache(s) PFSH ED PFSH: Medical History History of methamphetamine abuse Hx of thyroid nodule Major depressive disorder, recurrent, unspecified Seizure disorder Social History Smoking and tobacco status: current every day smoker Physical Exam Const: ORIENTATION/CONSCIOUSNESS: Yes awake HENMT: COMMON NORMALS: normocephalic, atraumatic and hearing grossly normal bilaterally HEAD & SCALP: normocephalic and atraumatic Neck/C-Spine: COMMON NORMALS: no JVD Resp: COMMON NORMALS: normal respiratory effort, No retractions, No use of accessory muscles and clear to auscultation bilaterally AUSCULTATION: clear to auscultation bilaterally Cardio: COMMON NORMALS: no JVD, regular rate, regular rhythm and No murmurs present (Cardio) RATE: regular rate RHYTHM: regular rhythm GI: COMMON NORMALS: Soft to palpation and No hepatosplenomegaly present AUSCULTATION: Yes normoactive bowel sounds PALPATION: Yes Soft to palpation, No Tenderness to palpation present (GI), No Guarding due to palpation present (GI) and Yes No hepatosplenomegaly present Extremity: COMMON NORMALS: normal to inspection, capillary refill normal, no clubbing, cyanosis or edema, no calf tenderness and no pedal edema Skin: COMMON NORMALS: no rashes or lesions noted GENERAL SKIN EXAM: no rashes or lesions noted Course Vital Signs: Vital signs: Vital Signs Temperature 98.1 F 06/21/21 08:03 Pulse Rate 78 06/21/21 09:53 Respiratory Rate 20 H 06/21/21 09:53 Blood Pressure 117/77 06/21/21 08:03 Pulse Oximetry 96 06/21/21 09:53 [facility] - General Adult Medical Decision Making Patient wanted to leave [place]. She could not be dissuaded. She is angry because we are not giving her methadone. She states her problem is she has not had her methadone and she is can have more seizures stating she is withdrawing and is angry that we are not yet given her methadone she signed out AMA to walk to the methadone clinic. Medical Records I reviewed the patient's medical records. Lab Data I reviewed the patient's lab results. : 06/21/21 08:52 06/21/21 08:[address] 06/21/21 08:03 IMPRESSION: 1. No acute intracranial hemorrhage or edema. 2. Stable noncontrast head CT since 08/31/2006. Cervical Spine CT 06/21/21 08:09 IMPRESSION: 1. No cervical spine fracture or acute disc protrusion. 2. LEFT thyroid nodule with peripheral calcification stable since 2013. Laboratory Results WBC 7.8 10^3/uL (4.0-10.0) 06/21/21 08:52 RBC 4.99 10^6/uL (4.1-5.3) 06/21/21 08:52 Hgb 15.6 g/dL (11.5-15.3) H 06/21/21 08:52 Hct 49.9 % (37.0-47.0) H 06/21/21 08:52 MCV 100.0 fl (81-99) H 06/21/21 08:52 MCH 31.3 pg (28.0-34.0) 06/21/21 08:52 MCHC 31.3 g/dL (30.0-36.0) 06/21/21 08:52 RDW 13.2 % (12.1-15.1) 06/21/21 08:52 Plt Count 263 10^3/cmm (130-400) 06/21/21 08:52 MPV 9.7 fL (7.4-10.4) 06/21/21 08:52 Neut % (Auto) 64.1 % 06/21/21 08:52 Lymph % (Auto) 23.6 % 06/21/21 08:52 [place] % (Auto) 10.2 % 06/21/21 08:52 Eos % (Auto) 0.9 % 06/21/21 08:52 Baso % (Auto) 0.8 % 06/21/21 08:52 Neut # (Auto) 4.98 10^3/uL (1.8-7.7) 06/21/21 08:52 Lymph # (Auto) 1.8 10^3/uL (0.8-4.8) 06/21/21 08:52 [place] # (Auto) 0.8 10^3/uL (0.2-0.9) 06/21/21 08:52 Eos # (Auto) 0.1 10^3/uL (0.0-0.8) 06/21/21 08:52 Baso # (Auto) 0.1 10^3/uL (0.0-0.1) 06/21/21 08:52 Nucleated RBC % (auto) 0 % 06/21/21 08:52 Nucleated RBCs # 0.0 /100WBC 06/21/21 08:52 Sodium Cancelled 06/21/21 08:52 Potassium Cancelled 06/21/21 08:52 Chloride Cancelled 06/21/21 08:52 Carbon Dioxide Cancelled 06/21/21 08:52 Anion Gap Cancelled 06/21/21 08:52 BUN Cancelled 06/21/21 08:52 Creatinine Cancelled 06/21/21 08:52 GFR Calculation Cancelled 06/21/21 08:52 Glucose Cancelled 06/21/21 08:52 Calculated Osmolality Cancelled 06/21/21 08:52 Calcium Cancelled 06/21/21 08:52 Total Bilirubin Cancelled 06/21/21 08:52 AST Cancelled 06/21/21 08:52 ALT Cancelled 06/21/21 08:52 Alkaline Phosphatase Cancelled 06/21/21 08:52 Creatine Kinase Cancelled 06/21/21 08:52 Total Protein Cancelled 06/21/21 08:52 Albumin Cancelled 06/21/21 08:52 Globulin Cancelled 06/21/21 08:52 Urine Color Straw (Yellow) 06/21/21 08:31 Urine Appearance Clear (CLEAR) 06/21/21 08:31 Urine pH 6.5 (5-7) 06/21/21 08:31 Ur Specific [place] 1.010 (1.005-1.030) 06/21/21 08:31 Urine Protein Neg (Negative) 06/21/21 08:31 Urine Glucose (UA) Norm (Normal) 06/21/21 08:31 Urine Ketones Negative (Negative) 06/21/21 08:31 Urine Blood Neg (Negative) 06/21/21 08:31 Urine Nitrate Negative (Negative) 06/21/21 08:31 Urine Bilirubin Neg (Negative) 06/21/21 08:31 Urine Urobilinogen Norm mg/dL (Negative) 06/21/21 08:31 Ur Leukocyte Esterase Negative (Negative) 06/21/21 08:31 Salicylates Cancelled 06/21/21 08:52 Urine Opiates Screen Negative ng/mL (Negative) 06/21/21 08:31 Acetaminophen Cancelled 06/21/21 08:52 Ur Barbiturates Screen Negative ng/mL (Negative) 06/21/21 08:31 Ur Phencyclidine Scrn Negative ng/mL (Negative) 06/21/21 08:31 Ur Amphetamines Screen Negative ng/mL (Negative) 06/21/21 08:31 U Benzodiazepines Scrn Negative ng/mL (Negative) 06/21/21 08:31 Urine Cocaine Screen Negative ng/mL (Negative) 06/21/21 08:31 U Marijuana (THC) Screen Positive ng/mL (Negative) H 06/21/21 08:31 Discharge Plan Discharge Patient Disposition: Left Against Medical Advice Clinical Impression: Seizure disorder, Methadone maintenance therapy patient Condition: Stable Prescriptions: No Action ciprofloxacin HCl [Cipro] 250 mg tablet 250 mg PO BID 5 Days Qty: 10 0RF nystatin 100,000 unit/mL suspension 100,000 unit PO TID 10 Days Qty: 30 0RF Rx Instructions: administer 1/2 of dose in each side of the mouth metronidazole 500 mg tablet 500 mg PO BID 7 Days Qty: 14 0RF aspirin [Aspir-81] 81 mg Tablet,Delayed Release (Dr/Ec) 81 mg PO DAILY 0RF Adult Multivitamin Gummies 200 mcg Tablet,Chewable 400 mcg PO DAILY 0RF melatonin 10 mg Tablet 20 mg PO BEDTIME 0RF potassium chloride 10 mEq Tablet Extended Release 10 meq PO DAILY PRN (Reason: unknown) 0RF furosemide [Lasix] 20 mg Tablet 20 mg PO DAILY PRN (Reason: Edema) 0RF Rx Instructions: pt states she has this medication but hasnt taken for few days. albuterol sulfate [ProAir HFA] 90 mcg/actuation Hfa Aerosol Inhaler 2 puff INHALATION Q4H PRN (Reason: Shortness Of Breath) 0RF Excedrin Migraine 250-250-65 mg Tablet 3 - 4 tab PO PRN 0RF ibuprofen 200 mg Tablet 200 - 400 mg PO Q4H PRN (Reason: Pain) 0RF Referrals: Eli Reina FNP [Primary Care Provider] - Activity Restrictions/Additional Instructions: You may return at any time if you have any further symptoms. Coding Level of Care Code ED Education Intern for Chg Fwd Exam Comprehensive
[2021-06-21 08:03] VITALS: BP 117/77; PULSE 73; RESP 18; TEMP 36.7; O2SAT 95
--- NOTE | 2021-06-21 08:03 | CT_ITS ---
WS: [id number] CT HEAD NONCONTRAST HISTORY: AMS TECHNIQUE: Contiguous axial imaging performed through the brain in 2.5 mm imaging. Bone and soft tiss ue windows. Sagittal and coronal reformats reviewed. All CT scans at [facility] use at least one of these dose optimization techniques: automated exposure control; mA and/or kV adjustment per pa tient size (includes targeted exams where dose is matched to clinical indication); or iterative recon struction. DLP: 837.12 mGy.cm COMPARISON: 08/31/2006 No acute intracranial hemorrhage, midline shift or mass effect. No atrophy or prior infarcts or herniation. Prominent cisterna magna versus arachnoid cyst in the po sterior fossa. No interval change. Ventricles: Normal size with no hydrocephalus. Paranasal sinuses: As visualized are clear. Mastoid air cells: Well pneumatized. Calvarium and scalp: No skull fracture. There are several scattered calcified nodules within the scal p which is been present on prior studies. These may be a sebaceous cyst. CT/CT head wo con* [id number] IMPRESSION: 1. No acute intracranial hemorrhage or edema. 2. Stable noncontrast head CT since 08/31/2006.
--- NOTE | 2021-06-21 08:09 | CT_ITS ---
WS: [id number] CT CERVICAL SPINE HISTORY: fall/pain TECHNIQUE: Contiguous 2.5 mm axial imaging performed through the entire cervical spine. Sagittal and coronal reformats also performed. All CT scans at [facility] use at least one of these dose o ptimization techniques: automated exposure control; mA and/or kV adjustment per patient size (include s targeted exams where dose is matched to clinical indication); or iterative reconstruction. DLP: 387.38 mGy.cm COMPARISON: 10/03/2013 Very slight straightening and LEFT curvature of the cervical spine. Craniocervical junction is normal . Facet joints are normally aligned. No vertebral body fracture. No significant disc space narrowing. Lateral masses of C1 and C2 are aligned. Odontoid is intact. No cervical spine fracture or acute-appearing disc protrusions. No central or foraminal stenosis. Peripherally, partially calcified nodule in the inferior LEFT thyroid measures 10 x 9 mm. Lung apice s are clear. CT/CT cervical spin wo con* [id number] IMPRESSION: 1. No cervical spine fracture or acute disc protrusion. 2. LEFT thyroid nodule with peripheral calcification stable since 2013.
[2021-06-21 08:43] LABS: Add Urine Microscopic? NO; Charge for UA Resulting for Rev
[2021-06-21 09:04] LABS: Amphetamines Screen Urine Negative (Negative); Barbiturates Screen Urine Negative (Negative); Benzodiazepines Screen Urine Negative (Negative); Cocaine Screen Urine Negative (Negative); Opiate Screen Urine Negative (Negative); PCP Screen Urine Negative (Negative); THC Screen Urine Positive (Negative)
[2021-06-21 09:07] LABS: Bilirubin Urine Neg (Negative); Blood Urine Neg (Negative); Glucose Urine UA Norm (Normal); Ketones Urine Negative (Negative); Leukocyte Esterase Urine Negative (Negative); Nitrate Urine Negative (Negative); Protein Urine Neg (Negative); Urine Appearance Clear (CLEAR); Urine Color Straw (Yellow); Urobilinogen Urine Norm (Negative); pH Urine 6.5 (5-7)
[2021-06-21 09:11] LABS: Basophils # 0.1 10^3/uL (0.0-0.1); Basophils % 0.8 %; Eosinophils # 0.1 10^3/uL (0.0-0.8); Eosinophils % 0.9 %; Hematocrit 49.9 % (37.0-47.0); Hemoglobin 15.6 g/dL (11.5-15.3); Lymphocytes # 1.8 10^3/uL (0.8-4.8); Lymphocytes % 23.6 %; Mean Corpuscular HGB Conc 31.3 g/dL (30.0-36.0); Mean Corpuscular Hemoglobin 31.3 pg (28.0-34.0); Mean Platelet Volume 9.7 fL (7.4-10.4); Monocytes # 0.8 10^3/uL (0.2-0.9); Monocytes % 10.2 %; Neutrophils # 4.98 10^3/uL (1.8-7.7); Neutrophils % 64.1 %; Nucleated Red Blood Cells % 0 %; Platelet Count 263 10^3/cmm (130-400); Red Blood Count 4.99 10^6/uL (4.1-5.3); Red Cell Distribution Width 13.2 % (12.1-15.1); White Blood Count 7.8 10^3/uL (4.0-10.0)
--- NOTE | 2021-06-21 09:52 | PC.NURSE ---
LAB TO RE-DRAW HEMOLYZED BLOOD. POWER AND RECOVERY SUPERINTENDENT TOLD NURSE THAT PATIENT ISN'T GOING TO GIVE ANY MORE BLOOD. PATIENT STATES THAT SHE WILL NOT AND IF SHE HAS TO SHE WILL LEAVE. PROVIDER NOTIFIED.
[2021-06-21 09:53] VITALS: PULSE 78; RESP 20; O2SAT 96
== END 2021-06-21 10:01 | disposition left against medical advice (07) ==
PROVIDERS: Emergency Provider Family Medicine; PCP Nurse Practitioner Family
DX: G40.909 Epilepsy, unspecified, not intractable, without status epilepticus (principal); F11.20 Opioid dependence, uncomplicated; Z79.82 Long term (current) use of aspirin; Z53.21 Procedure and treatment not carried out due to patient leaving prior to being seen by health care provider; F17.210 Nicotine dependence, cigarettes, uncomplicated
CPT/HCPCS: 36415; 70450; 72125; 80306; 81003; 85025; 99284

== ENCOUNTER 2021-06-21 10:23 | Emergency (ER) | payer MEDICAID, SELFPAY ==
[2021-06-21 10:31] VITALS: BP 132/91; PULSE 77; RESP 16; TEMP 36.6; O2SAT 99; BMI 21.9
--- NOTE | 2021-06-21 10:37 | W.ED.GENADLT ---
Documented by User: WILFRED Landeros 06/21/21 10:45 HPI - General Adult General: Chief complaint: General Medical Stated complaint: AMS Time Seen by Provider: 06/21/21 10:36 Source: patient Mode of arrival: ambulatory Limitations: no limitations History of Present Illness: Patient is a 51-year-old female here for the third time in 24 hours. Patient tells me she recently left the ED so she could walk to the methadone clinic however found out that the clinic was closed because of Presidents' Day so came back to the emergency department. She states she does not really know why she checked back in-she is tearful and states she is tired and wants to go home. She states she is withdrawing from opiates but seems to understand that our emergency department does not dispense methadone. Associated symptoms: Deny chest pain, dyspnea, headache(s), malaise, nausea, rash or vomiting Review of Systems Const: Denies: fever(s), chills, body aches, fatigue or malaise Card: Denies: chest pain Resp: Denies: dyspnea GI: Denies: abdominal pain, nausea, vomiting or hematemesis Skin/Breast: Denies: rash Neuro: Denies: headache(s), lack of coordination, difficulty walking, frequent falls, dizziness, Slurred speech present or difficulty communicating thoughts PFSH ED PFSH: Medical History History of methamphetamine abuse Hx of thyroid nodule Major depressive disorder, recurrent, unspecified Seizure disorder Social History Smoking and tobacco status: current every day smoker Physical Exam Const: COMMON NORMALS: average body habitus, patient oriented x3, no limitations, alert and well nourished GENERAL APPEARANCE: cooperative and other (tearful at times) ORIENTATION/CONSCIOUSNESS: Yes awake, Yes oriented to person, Yes oriented to place and Yes oriented to time HENMT: COMMON NORMALS: normocephalic and atraumatic HEAD & SCALP: normocephalic and atraumatic Resp: COMMON NORMALS: normal respiratory effort and clear to auscultation bilaterally AUSCULTATION: clear to auscultation bilaterally Cardio: COMMON NORMALS: regular rate and regular rhythm RATE: regular rate RHYTHM: regular rhythm GI: COMMON NORMALS: Normal to inspection, nondistended, normoactive bowel sounds present, Soft to palpation and non-tender PALPATION: Yes Soft to palpation Neuro: YAN COMA SCALE: document GCS findings [place] coma scale eye opening: Spontaneous [place] coma scale verbal response: Orientated Yan coma scale motor response: Obey commands Yan coma scale total score: 15 COMMON NORMALS: patient oriented x3, moves all extremities, no focal motor deficits, no sensory deficits noted and gait normal SENSORIUM/ORIENTATION: Yes alert, Yes oriented to person, Yes oriented to place and Yes oriented to time Course Vital Signs: Vital signs: Vital Signs Temperature 97.8 F 06/21/21 10:31 Pulse Rate 77 06/21/21 10:31 Respiratory Rate 16 06/21/21 10:31 Blood Pressure 132/91 06/21/21 10:31 Pulse Oximetry 99 06/21/21 10:31 MDM - General Adult Medical Decision Making I explained to patient that we would be more than happy to help treat her symptoms related to opiate withdrawal but that our policy is not to administer methadone or opiates. Patient is tearful and states that she is tired and wants to go home but states she does not have a ride. She does have Medicaid so we will try to arrange a logisticare ride for her. She is also requesting we contact her son to see if he would be willing to come and get her-supervisor cutting and sewing room is working on this now. Patient again tells me she doesn't really want to be seen and just wants to go home and rest. Discharge Plan Discharge Patient Disposition: Home Clinical Impression: Opiate withdrawal Condition: Stable Prescriptions: No Action ciprofloxacin HCl [Cipro] 250 mg tablet 250 mg PO BID 5 Days Qty: 10 0RF nystatin 100,000 unit/mL suspension 100,000 unit PO TID 10 Days Qty: 30 0RF Rx Instructions: administer 1/2 of dose in each side of the mouth metronidazole 500 mg tablet 500 mg PO BID 7 Days Qty: 14 0RF aspirin [Aspir-81] 81 mg Tablet,Delayed Release (Dr/Ec) 81 mg PO DAILY 0RF Adult Multivitamin Gummies 200 mcg Tablet,Chewable 400 mcg PO DAILY 0RF melatonin 10 mg Tablet 20 mg PO BEDTIME 0RF potassium chloride 10 mEq Tablet Extended Release 10 meq PO DAILY PRN (Reason: unknown) 0RF furosemide [Lasix] 20 mg Tablet 20 mg PO DAILY PRN (Reason: Edema) 0RF Rx Instructions: pt states she has this medication but hasnt taken for few days. albuterol sulfate [ProAir HFA] 90 mcg/actuation Hfa Aerosol Inhaler 2 puff INHALATION Q4H PRN (Reason: Shortness Of Breath) 0RF Excedrin Migraine 250-250-65 mg Tablet 3 - 4 tab PO PRN 0RF ibuprofen 200 mg Tablet 200 - 400 mg PO Q4H PRN (Reason: Pain) 0RF Discharge Orders: Discharge ED (Routine); Ordered 06/21/21 Ordered By: Opal Morales Referrals: Eli Reina FNP [Nurse Practitioner] - Coding Level of Care Code ED Staff Nurse for Chg Fwd Exam Detailed Documented by User: Jamey March DO 06/21/21 13:50 HPI - General Adult General: Chief complaint: General Medical Stated complaint: AMS Time Seen by Provider: 06/21/21 10:36 [facility] ED PFSH: Medical History History of methamphetamine abuse Hx of thyroid nodule Major depressive disorder, recurrent, unspecified Seizure disorder Social History Smoking and tobacco status: current every day smoker Physical Exam Neuro: YAN COMA SCALE: document GCS findings Yan coma scale total score: 15 Course Vital Signs: Vital signs: Vital Signs Temperature 97.8 F 06/21/21 10:31 Pulse Rate 77 06/21/21 10:31 Respiratory Rate 16 06/21/21 10:31 Blood Pressure 132/91 06/21/21 10:31 Pulse Oximetry 99 06/21/21 10:31 MDM - General Adult Medical Decision Making I explained to patient that we would be more than happy to help treat her symptoms related to opiate withdrawal but that our policy is not to administer methadone or opiates. Patient is tearful and states that she is tired and wants to go home but states she does not have a ride. She does have Medicaid so we will try to arrange a logisticare ride for her. She is also requesting we contact her son to see if he would be willing to come and get her-supervisor cutting and sewing room is working on this now. Patient again tells me she doesn't really want to be seen and just wants to go home and rest. Chart reviewed and patient discussed with midlevel. Agree with assessment and plan. Discharge Plan Discharge Patient Disposition: Home Clinical Impression: Opiate withdrawal Condition: Stable Prescriptions: No Action ciprofloxacin HCl [Cipro] 250 mg tablet 250 mg PO BID 5 Days Qty: 10 0RF nystatin 100,000 unit/mL suspension 100,000 unit PO TID 10 Days Qty: 30 0RF Rx Instructions: administer 1/2 of dose in each side of the mouth metronidazole 500 mg tablet 500 mg PO BID 7 Days Qty: 14 0RF aspirin [Aspir-81] 81 mg Tablet,Delayed Release (Dr/Ec) 81 mg PO DAILY 0RF Adult Multivitamin Gummies 200 mcg Tablet,Chewable 400 mcg PO DAILY 0RF melatonin 10 mg Tablet 20 mg PO BEDTIME 0RF potassium chloride 10 mEq Tablet Extended Release 10 meq PO DAILY PRN (Reason: unknown) 0RF furosemide [Lasix] 20 mg Tablet 20 mg PO DAILY PRN (Reason: Edema) 0RF Rx Instructions: pt states she has this medication but hasnt taken for few days. albuterol sulfate [ProAir HFA] 90 mcg/actuation Hfa Aerosol Inhaler 2 puff INHALATION Q4H PRN (Reason: Shortness Of Breath) 0RF Excedrin Migraine 250-250-65 mg Tablet 3 - 4 tab PO PRN 0RF ibuprofen 200 mg Tablet 200 - 400 mg PO Q4H PRN (Reason: Pain) 0RF Discharge Orders: Discharge ED (Routine); Ordered 06/21/21 Ordered By: Opal Morales Referrals: Eli Reina FNP [Nurse Practitioner] - Coding Level of Care Code ED Staff Nurse for Chg Fwd Exam Detailed
--- NOTE | 2021-06-21 10:42 | PC.NURSE ---
DAILED PHONE NUMBER FOR PT TO SPEAK WITH SON. PT REPORTS THAT HER SON IS GOING TO COME PICK HER UP.
== END 2021-06-21 10:49 | disposition home or self-care (01) ==
LOC: ER 10:51
PROVIDERS: Emergency Provider Physician Assistant
DX: F11.23 Opioid dependence with withdrawal (principal); Z79.82 Long term (current) use of aspirin; F17.210 Nicotine dependence, cigarettes, uncomplicated
CPT/HCPCS: 99281

== ENCOUNTER → 2021-09-06 08:51 | Outpatient (BNVA) | payer MEDICAID, SELFPAY | PROVIDERS: PCP Nurse Practitioner Family; Referring Provider Nurse Practitioner Family; Visit Provider Surgery | DX: K59.00 Constipation, unspecified (principal); N82.3 Fistula of vagina to large intestine | CPT/HCPCS: 99213 ==

== ENCOUNTER 2021-09-30 06:07 | Day surgery (SDC) | payer MEDICAID, SELFPAY ==
[2021-09-28 14:46] VITALS: BMI 22.8
--- NOTE | 2021-09-30 06:12 | W.PM.OPSUD ---
Surgery/Procedure H&P Update DATE OF PROCEDURE: September 30, 2021 DATE H&P PERFORMED: 09/06/21 H&P UPDATE INFORMATION: I have reviewed H&P completed within last 30 days, I have examined patient prior to procedure and No changes to prior documentation PRIMARY INDICATION FOR PROCEDURE: Chronic constipation PLANNED PROCEDURE: Operation Date: 09/30/21 07:30 Proposed Procedures p Colonoscopy 35018/R19.4(Not Applicable) - Shantanu Ge MD
[2021-09-30 06:22] VITALS: BP 111/71; PULSE 54; RESP 18; TEMP 36.7; O2SAT 97
[2021-09-30] MEDS: sodium chloride 0.9% 1,000 ML 30 ML IV (06:29)
--- NOTE | 2021-09-30 06:56 | ANES.PREANE2 ---
Pre-Anesthetic Assessment Height/Weight: Height 1.7 m Weight 66.224 kg Temp Pulse Resp BP Pulse Ox 98.1 F 54 L 18 111/71 97 09/30/21 06:22 09/30/21 06:22 09/30/21 06:22 09/30/21 06:22 09/30/21 06:22 Preop Diagnosis: Chronic constipation Operation Date: 09/30/21 07:30 Proposed Procedures p Colonoscopy 77801/R19.4(Not Applicable) - Shantanu Ge MD Familial anesthetic complications: none Was Beta Cody taken within 24 hours: N/A Was Clonidine taken within 24 hours: N/A Last intake: Intake Last Liquid Date 09/29/21 Last Liquid Time 22:00 Last Solid Date 09/28/21 Last Solid Time 21:00 Last Intake: 22:00 Social Tobacco and No alcohol 1 pack(s) per day 30+ pack years Exam alert, oriented x 3, clear to auscultation bilaterally and regular rate & rhythm Airway Submandibular: within normal limits Cervical ROM: within normal limits Mallampati: Class I Dentition: full Pulmonary Asthma, Chronic Obstructive Pulmonary Disease and Exertional Dyspnea CV/HEM Coronary Artery Disease (2010 meds controlled. No CP since) and Congestive Heart Failure None reported Hepatic Hepatitis (Hx hep C that was treated) and None reported GI Gastroesophageal Reflux Disease Metabolic None reported Musc/skel Lower Back Pain and Scoliosis Neuropsych Anxiety, Bipolar, Depression and Seizure Anesthetic Plan ASA status: 3 Anesthesia: MAC Medications/Allergies Home Medications Medication Instructions Recorded Confirmed Last Taken Type albuterol sulfate 90 mcg/actuation 2 puff INHALATION Q4H PRN 11/08/19 09/28/21 Unknown History aerosol inhaler (ProAir HFA) aspirin 81 mg tablet,delayed 81 mg PO DAILY 11/08/19 09/28/21 12/23/19 History release (Aspir-) eijlfpi-qnndlrsblvqrm-thaniono 250 3 - 4 tab PO PRN 11/08/19 09/28/21 11/08/19 History mg-250 mg-65 mg tablet (Excedrin Migraine) melatonin 10 mg tablet 20 mg PO BEDTIME 11/08/19 09/28/21 12/23/19 History multivitamin with minerals-folic 400 mcg PO DAILY 11/08/19 09/28/21 12/24/19 History acid 200 mcg chewable tablet (Adult Multivitamin Gummies) ibuprofen 200 mg tablet 200 - 400 mg PO Q4H PRN 12/24/19 09/28/21 12/24/19 History gabapentin 400 mg capsule 400 mg PO TID #90 cap 08/10/21 09/28/21 Unknown Rx tizanidine 4 mg capsule 4 mg PO BID PRN #60 cap 08/11/21 09/28/21 Unknown Rx furosemide 20 mg tablet (Lasix) 20 mg PO DAILY #30 tab 08/18/21 09/28/21 Unknown Rx potassium chloride 10 mEq 10 meq PO DAILY #30 tab 08/18/21 09/28/21 Unknown Rx tablet,extended release lactulose 10 gram/15 mL oral 10 g (15 mL) PO BID 7 Days #210 ml 09/22/21 09/28/21 Unknown Rx solution methadone 40 mg soluble tablet 120 mg PO DAILY 09/28/21 09/28/21 Unknown History methadone 5 mg tablet 5 mg PO DAILY 09/28/21 09/28/21 Unknown History Allergies Allergy/AdvReac Type Severity Reaction Status Date / Time haloperidol Allergy ADR-Blurry Verified 09/28/21 14:39 Vision ketorolac [From Toradol] Allergy ADR-Seizure Verified 09/28/21 14:39 nitrofurantoin Allergy ALGY-Hives Verified 09/28/21 14:39 [From Macrodantin] Penicillins Allergy Unknown Verified 09/28/21 14:39 Sulfa (Sulfonamide Allergy ALGY-Hives Verified 09/28/21 14:39 Antibiotics) Current Medications Generic Name Dose Route Start Last Admin Trade Name Freq PRN Reason Stop Dose Admin Sodium Chloride 1,000 mls @ 30 mls/hr 09/30/21 06:30 09/30/21 06:29 Sodium Chloride 0.9% IV 10/01/21 06:29 30 mls/hr .Q24H BARBRA Administration PFSH Anesthesia Medical History History of methamphetamine abuse Hx of thyroid nodule Major depressive disorder, recurrent, unspecified Seizure disorder Family History Other Cancer Social History Smoking and tobacco status: current every day smoker Data Anesthesia Cardiac Studies: No Data to Display
[2021-09-30 07:53] VITALS: BP 85/55; PULSE 51; RESP 16; TEMP 36.4; O2SAT 97
[2021-09-30 08:00] VITALS: BP 101/66; PULSE 54; RESP 17; TEMP 36.3; O2SAT 94
--- NOTE | 2021-09-30 10:56 | ANE.PACU2 ---
Inpatient post-anesthesia follow up: Airway intact: Yes Vital signs: Temperature 97.4 F Pulse Rate 54 Respiratory Rate 17 Blood Pressure 101/66 Pulse Oximetry 94 Oxygen Delivery Me thod Room Air Oxygen Flow Rate Fraction of Inspir ed Oxygen Hydration adequate: Yes Nausea and vomiting: No Pain level: 1
== END 2021-09-30 08:17 | disposition home or self-care (01) ==
PROVIDERS: PCP Nurse Practitioner Family; Visit Provider Surgery
PROC: 0DJD8ZZ Inspection of Lower Intestinal Tract, Via Natural or Artificial Opening Endoscopic (ICD-10-PCS; CPT 45378; principal; 2021-09-30 07:30)
DX: K59.09 Other constipation (principal); K57.30 Diverticulosis of large intestine without perforation or abscess without bleeding; F17.200 Nicotine dependence, unspecified, uncomplicated; J44.9 Chronic obstructive pulmonary disease, unspecified; I25.10 Atherosclerotic heart disease of native coronary artery without angina pectoris; I50.9 Heart failure, unspecified; Z86.16 Personal history of COVID-19; K21.9 Gastro-esophageal reflux disease without esophagitis; Z79.82 Long term (current) use of aspirin; N82.3 Fistula of vagina to large intestine
CPT/HCPCS: 45378; J2704; J7030

== ENCOUNTER → 2021-10-18 08:43 | Outpatient (BNVA) | payer MEDICAID, SELFPAY | PROVIDERS: PCP Nurse Practitioner Family; Visit Provider Surgery | DX: Z09 Encounter for follow-up examination after completed treatment for conditions other than malignant neoplasm (principal); K92.1 Melena; K57.31 Diverticulosis of large intestine without perforation or abscess with bleeding | CPT/HCPCS: 99213 ==

== ENCOUNTER 2021-11-10 09:12 | Day surgery (SDC) | payer MEDICAID, SELFPAY ==
[2021-11-09 10:52] VITALS: BMI 22.2
[2021-11-10 09:57] VITALS: BP 106/79; PULSE 65; RESP 18; TEMP 36.4; O2SAT 97
[2021-11-10] MEDS: sodium chloride 0.9% 1,000 ML 30 ML IV (10:00)
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
--- NOTE | 2021-11-10 10:48 | W.PM.OPSUD ---
Surgery/Procedure H&P Update DATE OF PROCEDURE: November 10, 2021 DATE H&P PERFORMED: 10/18/21 H&P UPDATE INFORMATION: I have reviewed H&P completed within last 30 days, I have examined patient prior to procedure and No changes to prior documentation PREOP DIAGNOSIS: Black stool PRIMARY INDICATION FOR PROCEDURE: The same PLANNED PROCEDURE: Operation Date: 11/10/21 10:45 Proposed Procedures p EGD 78315,K92.1(Not Applicable) - Shantanu Ge MD
--- NOTE | 2021-11-10 11:31 | SUR.OPER ---
clip placed at antrum bx site
[2021-11-10 11:34] VITALS: BP 99/64; PULSE 16; RESP 48; TEMP 36.1; O2SAT 96
[2021-11-10 11:51] VITALS: BP 114/69; PULSE 18; RESP 47; O2SAT 97
[2021-11-10 12:00] VITALS: BP 135/79; PULSE 18; RESP 45; O2SAT 96
--- NOTE | 2021-11-10 13:41 | ANE.PACU2 ---
Inpatient post-anesthesia follow up: Airway intact: Yes Vital signs: Temperature 97.0 F Pulse Rate 18 Respiratory Rate 45 Blood Pressure 135/79 Pulse Oximetry 96 Oxygen Delivery Me thod Room Air Oxygen Flow Rate 4 Fraction of Inspir ed Oxygen Hydration adequate: Yes Nausea and vomiting: No Pain level: 1 Mental status: Baseline
== END 2021-11-10 12:15 | disposition home or self-care (01) ==
PROVIDERS: PCP Nurse Practitioner Family; Visit Provider Surgery
PROC: 0DJ08ZZ Inspection of Upper Intestinal Tract, Via Natural or Artificial Opening Endoscopic (ICD-10-PCS; CPT 43235; principal; 2021-11-10 10:45)
DX: K92.1 Melena (principal); K21.9 Gastro-esophageal reflux disease without esophagitis; K29.80 Duodenitis without bleeding; K29.50 Unspecified chronic gastritis without bleeding; I50.9 Heart failure, unspecified; I25.2 Old myocardial infarction; M19.90 Unspecified osteoarthritis, unspecified site; Z79.82 Long term (current) use of aspirin; F15.21 Other stimulant dependence, in remission; F17.210 Nicotine dependence, cigarettes, uncomplicated
CPT/HCPCS: 43239; 88305; 88342; J2704; J7030

== ENCOUNTER → 2021-12-15 14:20 | Outpatient (BNVA) | payer MEDICAID, SELFPAY | PROVIDERS: PCP Nurse Practitioner Family; Visit Provider Surgery | DX: K20.90 Esophagitis, unspecified without bleeding (principal); K29.90 Gastroduodenitis, unspecified, without bleeding | CPT/HCPCS: 99213 ==

== ENCOUNTER → 2022-01-13 13:16 | Outpatient (BNVA) | payer MEDICAID, SELFPAY | PROVIDERS: PCP Nurse Practitioner Family; Visit Provider Surgery | DX: Z09 Encounter for follow-up examination after completed treatment for conditions other than malignant neoplasm (principal) | CPT/HCPCS: 99213 ==

== ENCOUNTER → 2022-06-22 15:18 | Outpatient (BNVA) | payer MEDICAID, SELFPAY | PROVIDERS: PCP Nurse Practitioner Family; Visit Provider Nurse Practitioner Family | DX: Z12.4 Encounter for screening for malignant neoplasm of cervix (principal); N89.8 Other specified noninflammatory disorders of vagina | CPT/HCPCS: 87070; 87077; 87184; 87205; 88175 ==

== ENCOUNTER 2022-06-29 13:58 | Outpatient (CLI) | payer MEDICAID, SELFPAY ==
--- NOTE | 2022-06-29 13:30 | MM_ITS ---
WS: [id number] BILATERAL 3D TOMOSYNTHESIS DIGITAL DIAGNOSTIC MAMMOGRAPHY WITH CAD CLINICAL INFORMATION: FRANK BREAST LUMPS;BLACK RT DISCHARGE HISTORY: Bilateral breast lumps. Black discharge RIGHT nipple. COMPARISON: 2020 TECHNIQUE: Bilateral CC, MLO, and ML views. FINDINGS: Scattered fibroglandular densities bilaterally. Bilateral palpable marker is near the areola. No defi nite underlying parenchymal abnormalities. Ultrasound described below. Parenchyma pattern is unchanged compared to 2021. Stable asymmetries subareolar LEFT breast. ULTRASOUND BREAST BILATERAL TECHNIQUE: Ultrasound bilateral breast focused area of concern. CLINICAL INFORMATION: FRANK BREAST LUMPS;BLACK RT DISCHARGE FINDINGS: RIGHT BREAST: RIGHT breast ultrasound at the 9:00 position 1 cm from the nipple and 6:00 position at the areola. Incidental tiny cyst and clusters of cysts visualized. The largest cluster measuring 4.8 x 2.4 x 7.7 mm at the 6 clock position. LEFT BREAST: Ultrasound LEFT breast 4:00 position at the areola and 1:00 position 2 cm from the nippl e. Additional ultrasound at the 11:00 position 2 cm from the nipple in the area of patient concern. I ncidental small cysts measuring 2.6 x 3.9 x 3.0 mm at the 4:00 position at the areola. Small ovoid cy st measuring 5 mm at the 11:00 position. No suspicious abnormalities in either breast. No lesions to target for biopsy. MM/[place] [id number] IMPRESSION: BI-RADS: 2-Benign FOLLOW UP: 1 Year Follow-up Recommend return to annual screening mammography.
--- NOTE | 2022-06-29 14:40 | US_ITS ---
WS: [id number] BILATERAL 3D TOMOSYNTHESIS DIGITAL DIAGNOSTIC MAMMOGRAPHY WITH CAD CLINICAL INFORMATION: FRANK BREAST LUMPS;BLACK RT DISCHARGE HISTORY: Bilateral breast lumps. Black discharge RIGHT nipple. COMPARISON: 2020 TECHNIQUE: Bilateral CC, MLO, and ML views. FINDINGS: Scattered fibroglandular densities bilaterally. Bilateral palpable marker is near the areola. No defi nite underlying parenchymal abnormalities. Ultrasound described below. Parenchyma pattern is unchanged compared to 2021. Stable asymmetries subareolar LEFT breast. ULTRASOUND BREAST BILATERAL TECHNIQUE: Ultrasound bilateral breast focused area of concern. CLINICAL INFORMATION: FRANK BREAST LUMPS;BLACK RT DISCHARGE FINDINGS: RIGHT BREAST: RIGHT breast ultrasound at the 9:00 position 1 cm from the nipple and 6:00 position at the areola. Incidental tiny cyst and clusters of cysts visualized. The largest cluster measuring 4.8 x 2.4 x 7.7 mm at the 6 clock position. LEFT BREAST: Ultrasound LEFT breast 4:00 position at the areola and 1:00 position 2 cm from the nippl e. Additional ultrasound at the 11:00 position 2 cm from the nipple in the area of patient concern. I ncidental small cysts measuring 2.6 x 3.9 x 3.0 mm at the 4:00 position at the areola. Small ovoid cy st measuring 5 mm at the 11:00 position. No suspicious abnormalities in either breast. No lesions to target for biopsy. US/US breast BI limited* [id number] IMPRESSION: BI-RADS: 2-Benign FOLLOW UP: 1 Year Follow-up Recommend return to annual screening mammography.
== END 2022-06-29 13:59 | disposition home or self-care (01) ==
LOC: RAD 14:04
PROVIDERS: PCP Nurse Practitioner Family; Visit Provider Nurse Practitioner Family
DX: Z12.39 Encounter for other screening for malignant neoplasm of breast (principal)
CPT/HCPCS: 76642; 77062; G0279

== ENCOUNTER → 2022-07-13 10:21 | Outpatient (BNVA) | payer MEDICAID, SELFPAY | PROVIDERS: PCP Nurse Practitioner Family; Visit Provider Nurse Practitioner Family | DX: A49.02 Methicillin resistant Staphylococcus aureus infection, unspecified site (principal); N89.8 Other specified noninflammatory disorders of vagina | CPT/HCPCS: 87070; 87106; 87205 ==

== ENCOUNTER 2022-09-07 07:29 | Outpatient (CLI) | payer MEDICAID, SELFPAY ==
--- NOTE | 2022-09-07 | US_ITS ---
WS: [id number] Pelvic ultrasound, 09/07/2022 Clinical Data: R10.2 - Pelvic and perineal pain Comparison: None. Findings: The uterus measures 6.2 cm x 4.2 cm x 3.0 cm. The endometrium is 0.4 cm. No intrauterine or abnormal intrauterine mass is seen. The overlying bowel gas obscures detail in both adnexa. US/US pelv w/transvag [id number] Impression: 1. Negative uterus. 2. Overlying bowel gas obscured detail in both adnexa and ovaries were not imag ed.
== END 2022-09-07 07:30 | disposition home or self-care (01) ==
LOC: RAD 07:35
PROVIDERS: PCP Nurse Practitioner Family; Visit Provider Nurse Practitioner Family
DX: R10.2 Pelvic and perineal pain (principal)
CPT/HCPCS: 76830; 76856

== ENCOUNTER 2022-09-27 15:56 | Emergency (ER) | payer MEDICAID, SELFPAY ==
[2022-09-27 16:14] VITALS: BP 95/69; PULSE 82; RESP 14; TEMP 36.7; O2SAT 95; BMI 28.7
[2022-09-27 17:40] VITALS: BP 122/75
--- NOTE | 2022-09-27 17:57 | W.ED.FALL ---
HPI - Fall General: Chief Complaint: Fall Stated Complaint: Fall, Head Pain, Dizzy Time Seen by Provider: 09/27/22 17:57 History of Present Illness: 52-year-old female comes in today for concerns of fall injury. 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 Patient reports this is not uncommon for her she has a seizure disorder. Patient also has a history of methadone for substance use disorder. Patient denies any use of alcohol but does use marijuana. Review of the record notes medications for GERD, COPD, and peripheral edema, and overactive bladder. Associated symptoms-after fall: Denies chest pain Review of Systems General: Reports: 10 or more systems reviewed and unremarkable except in HPI and below Card: Denies: chest pain Resp: Denies: dyspnea GI: Reports: nausea : Denies: difficulty voiding Neuro: Reports: dizziness (Patient reports recurrent) [facility] PFSH: Medical History Black stool Diverticulosis large intestine w/o perforation or abscess w/bleeding Esophagitis Gastritis and duodenitis History of methamphetamine abuse Hx of thyroid nodule Major depressive disorder, recurrent, unspecified Seizure disorder Surgical History History of cholecystectomy History of foot surgery History of tubal ligation Family History Mother CAD (coronary artery disease) Hypertension Lung disease Grandmother CAD (coronary artery disease) Cancer Hypertension Lung disease Father Cancer Family/Other Cancer Grandfather Cancer Lung disease Denies family history of Diabetes Dementia Chronic kidney disease (CKD) Stroke Social History Smoking and tobacco status: current every day smoker Alcohol intake: current Alcohol intake frequency: holidays/special occasions only Substance/Drug Use: current Substance/Drug use frequency: daily Adopted: Yes Lives independently: Yes Household members: friend(s) Housing: House Marital status: / Current occupational status: disabled Physical Exam Const: COMMON NORMALS: alert HENMT: COMMON NORMALS: normocephalic HEAD & SCALP: normocephalic Neck/C-Spine: COMMON NORMALS: full ROM Resp: COMMON NORMALS: normal respiratory effort and clear to auscultation bilaterally AUSCULTATION: clear to auscultation bilaterally Cardio: COMMON NORMALS: regular rate and regular rhythm RATE: regular rate RHYTHM: regular rhythm GI: AUSCULTATION: Yes normoactive bowel sounds PALPATION: No Tenderness to palpation present (GI) Extremity: COMMON NORMALS: normal to inspection Neuro: SENSORIUM/ORIENTATION: Yes alert Skin: COMMON NORMALS: turgor normal GENERAL SKIN EXAM: turgor normal Course Vital Signs: Vital signs: Vital Signs Temperature 98.0 F 09/27/22 16:14 Pulse Rate 82 09/27/22 16:14 Respiratory Rate 14 09/27/22 16:14 Blood Pressure 101/70 09/27/22 18:05 Pulse Oximetry 95 09/27/22 16:14 Oxygen Delivery Me thod Room Air 09/27/22 16:14 MDM - Fall Medical Decision Making Patient comes in for evaluation after a fall. Patient reports she was in her class and felt lightheaded and passed out. Patient reports that she does this frequently it is not uncommon for her. Patient relates it to having a seizure disorder. On exam no injury is noted to the scalp or head. Patient complains of neck and head ache. Patient moves all extremities well. No focal neural deficits. Skin is warm and dry. Vital signs are normal. Patient does have a history of substance use disorder and is in the methadone clinic. Patient reports that she has a seizure disorder, GERD, peripheral edema, overactive bladder, and constipation. Differential diagnosis includes not limited to syncopal episode, substance use disorder, electrolyte imbalance, dehydration, seizure disorder, head injury. Laboratory values were unremarkable. Patient became more alert throughout hospital stay. CT of the head and neck was unremarkable. Believe the patient may have had a seizure which she reports that she has occasionally which caused her to fall. CT scan of the head and neck noted no acute fractures or other abnormalities. Patient reported understanding agreed to plan. Lab Data 09/27/22 18:50 09/27/22 18:50 Radiology Impressions Cervical Spine CT 09/27/22 18:[address]: [address] evidence of acute cervical spine traumatic injury. 2. Additional findings, as above. Head CT 09/27/22 18:05 IMPRESSION: 1. No CT evidence of acute intracranial pathology. 2. Additional findings, as above. Laboratory Results WBC 7.0 10^3/uL (4.0-10.0) 09/27/22 18:50 RBC 4.28 10^6/uL (4.1-5.3) 09/27/22 18:50 Hgb 13.1 g/dL (11.5-15.3) 09/27/22 18:50 Hct 41.4 % (37.0-47.0) 09/27/22 18:50 MCV 96.7 fl (81-99) 09/27/22 18:50 MCH 30.6 pg (28.0-34.0) 09/27/22 18:50 MCHC 31.6 g/dL (30.0-36.0) 09/27/22 18:50 RDW 13.5 % (12.1-15.1) 09/27/22 18:50 Plt Count 252 10^3/cmm (130-400) 09/27/22 18:50 MPV 9.6 fL (7.4-10.4) 09/27/22 18:50 Neut % (Auto) 42.7 % 09/27/22 18:50 Lymph % (Auto) 42.8 % 09/27/22 18:50 [place] % (Auto) 11.2 % 09/27/22 18:50 Eos % (Auto) 2.4 % 09/27/22 18:50 Baso % (Auto) 0.6 % 09/27/22 18:50 Neut # (Auto) 3.00 10^3/uL (1.8-7.7) 09/27/22 18:50 Lymph # (Auto) 3.0 10^3/uL (0.8-4.8) 09/27/22 18:50 [place] # (Auto) 0.8 10^3/uL (0.2-0.9) 09/27/22 18:50 Eos # (Auto) 0.2 10^3/uL (0.0-0.8) 09/27/22 18:50 Baso # (Auto) 0.0 10^3/uL (0.0-0.1) 09/27/22 18:50 Nucleated RBC % (auto) 0.3 % 09/27/22 18:50 Nucleated RBCs # 0.0 /100WBC 09/27/22 18:50 Sodium 141 mmol/L (136-145) 09/27/22 18:50 Potassium 4.1 mmol/L (3.5-5.1) 09/27/22 18:50 Chloride 107 mmol/L (98-107) 09/27/22 18:50 Carbon Dioxide 26 mmol/L (22-29) 09/27/22 18:50 Anion Gap 12.1 (5-19) 09/27/22 18:50 BUN 18 mg/dL (6-20) 09/27/22 18:50 Creatinine 1.0 mg/dL (0.5-0.9) H 09/27/22 18:50 GFR Calculation 58.7 mL/min (90-130) L 09/27/22 18:50 Glucose 82 mg/dL (65-115) 09/27/22 18:50 Calculated Osmolality 293 mOsm/kg (285-295) 09/27/22 18:50 Calcium 8.8 mg/dL (8.5-10.5) 09/27/22 18:50 Total Bilirubin 0.2 mg/dL (0.15-1.2) 09/27/22 18:50 AST 15 U/L (0-32) 09/27/22 18:50 ALT 9 U/L (0-33) 09/27/22 18:50 Alkaline Phosphatase 63 U/L (35-105) 09/27/22 18:50 Total Protein 6.5 g/dL (6.6-8.7) L 09/27/22 18:50 Albumin 3.8 g/dL (3.5-5.2) 09/27/22 18:50 Globulin 2.7 g/dL (1.3-4.6) 09/27/22 18:50 Ethyl Alcohol < 10 mg/dL (0-10) 09/27/22 18:50 EKG Data EKG 1: EKG interpretation date: 09/27/22 EKG interpretation time: 19:00 Prior EKG tracings: not available for review Interpretation: EKG shows a sinus bradycardia with a regular rate of [address] elevation or ectopy is noted otherwise. No prior exam was available for comparison. Discharge Plan Discharge Patient Disposition: Home Clinical Impression: Head injury Qualifiers: Encounter type: initial encounter Qualified Code(s): S09.90XA - Unspecified injury of head, initial encounter Fall Qualifiers: Encounter type: initial encounter Qualified Code(s): W19.XXXA - Unspecified fall, initial encounter Condition: Stable Prescriptions: No Action pantoprazole 40 mg tablet,delayed release (DR/EC) 40 mg PO DAILY 30 Days Qty: 30 2RF sucralfate [Carafate] 1 gram tablet 1 g PO TID 30 Days Qty: 90 3RF lactulose 10 gram/15 mL solution 10 g PO BID 7 Days Qty: 210 0RF nystatin 100,000 unit/mL suspension 500,000 unit PO TID 7 Days Qty: 105 0RF Rx Instructions: administer 1/2 of dose in each side of the mouth tetracycline 500 mg capsule 500 mg PO Q6H Qty: 28 0RF Rx Instructions: take 1 cap every 6 hours for 7 days oxybutynin chloride 5 mg tablet extended release 24hr 5 mg PO DAILY Qty: 30 0RF furosemide [Lasix] 20 mg tablet 20 mg PO DAILY Qty: 30 0RF potassium chloride 10 mEq tablet extended release 10 meq PO DAILY Qty: 30 0RF docusate sodium 100 mg capsule 100 mg PO BID PRN (Reason: Constipation) Qty: 30 0RF levofloxacin 500 mg tablet 500 mg PO DAILY 7 Days Qty: 7 0RF varenicline [Chantix Continuing Month Box] 1 mg tablet 1 mg PO BID Qty: 56 0RF gabapentin 400 mg capsule See Rx Instructions .ROUTE .COMPLEX Qty: 90 2RF Dose Instruction: TAKE 1 CAPSULE BY MOUTH THREE TIMES DAILY Rx Instructions: TAKE 1 CAPSULE BY MOUTH THREE TIMES DAILY aspirin [Aspir-81] 81 mg Tablet,Delayed Release (Dr/Ec) 81 mg PO DAILY Hold Instructions: Resume on 11/16/21. Adult Multivitamin Gummies 200 mcg Tablet,Chewable 400 mcg PO DAILY melatonin 10 mg Tablet 20 mg PO BEDTIME albuterol sulfate [ProAir HFA] 90 mcg/actuation Hfa Aerosol Inhaler 2 puff INHALATION Q4H PRN (Reason: Shortness Of Breath) Excedrin Migraine 250-250-65 mg Tablet 3 - 4 tab PO PRN PRN (Reason: Headache) ibuprofen 200 mg Tablet 200 - 400 mg PO Q4H PRN (Reason: Pain) Hold Instructions: Resume on 11/17/21. methadone 40 mg Tablet,Soluble 120 mg PO DAILY methadone 5 mg Tablet 5 mg PO DAILY polyethylene glycol 3350 17 gram/dose powder 17 g PO DAILY Discharge Orders: Discharge ED (Routine); Ordered 09/27/22 Ordered By: Dagoberto Sandoval Referrals: Eli Reina FNP [Primary Care Provider] - Discharge Diet: Usual diet Discharge Activity: Increase activity as tolerated Patient Instructions: Head Injury (ED) Activity Restrictions/Additional Instructions: Continue routine medications. Follow-up with primary care for further instruction and evaluation. Return to ED for new concerns. Coding Level of Care Code ED Investigator Welfare for Lo Schuster
[2022-09-27 18:05] VITALS: BP 101/70
--- NOTE | 2022-09-27 18:05 | CTR_ITS ---
PROCEDURE INFORMATION: Exam: CT Cervical Spine Without Contrast Exam date and time: 09/27/2022 6:15 PM Age: 52 years old Clinical indication: Injury or trauma; Fall; Blunt trauma; Additional info: Injury fall TECHNIQUE: Imaging protocol: Computed tomography of the cervical spine without contrast. Axial, coronal and sagittal reformatted images were created and reviewed. Radiation optimization: All CT scans at this facility use at least one of these dose optimization techniques: automated exposure control; mA and/or kV adjustment per patient size (includes targeted exams where dose is matched to clinical indication); or iterative reconstruction. REPORTING DATA: Count of CT and Cardiac NM exams in prior 12 months: This patient has received 0 known CTs and 0 known cardiac nuclear medicine studies in the 12 months prior to the current study. COMPARISON: CT cervical spin wo con* [id number] 06/21/2021 9:08 AM RADIATION DOSE METRICS: Total DLP (mGy-cm): 235.8 FINDINGS: Bones/joints: Osteopenia. Straightening of the normal cervical lordosis. No CT evidence of acute fracture, dislocation or subluxation. Alignment anatomic. Minimal dextroscoliosis. Vertebral body heights maintained. Mild multilevel spondylosis without significant spinal canal or neural foraminal stenosis. Lungs: Grossly unremarkable. Soft tissues: Grossly unremarkable. CT/CT cervical spin wo con* [id number]: 1[address] No CT evidence of acute cervical spine traumatic injury. 2. Additional findings, as above.
--- NOTE | 2022-09-27 18:05 | CTR_ITS ---
PROCEDURE INFORMATION: Exam: CT Head Without Contrast Exam date and time: 09/27/2022 6:15 PM Age: 52 years old Clinical indication: Injury or trauma; Fall; Blunt trauma (contusions or hematomas); Consciousness not specified; Additional info: Injury, fall TECHNIQUE: Imaging protocol: Computed tomography of the head without contrast. Axial, coronal and sagittal reformatted images were created and reviewed. Radiation optimization: All CT scans at this facility use at least one of these dose optimization techniques: automated exposure control; mA and/or kV adjustment per patient size (includes targeted exams where dose is matched to clinical indication); or iterative reconstruction. REPORTING DATA: Count of CT and Cardiac NM exams in prior 12 months: This patient has received 0 known CTs and 0 known cardiac nuclear medicine studies in the 12 months prior to the current study. COMPARISON: CT head wo con* [id number] 06/21/2021 9:01 AM RADIATION DOSE METRICS: Total DLP (mGy-cm): 235.8 FINDINGS: Brain: Subtle, patchy areas of hypoattenuation in the periventricular and subcortical white matter, nonspecific but suggestive of mild chronic small vessel ischemic disease. No CT evidence of acute intracranial hemorrhage or acute territorial infarction. No significant mass effect or midline shift. Basal cisterns patent. Cerebral ventricles: Prominence of the cortical sulci, cisterns and ventricular system, consistent with cerebral and cerebellar volume loss. Paranasal sinuses: Unremarkable. No fluid levels. Mastoid air cells: Grossly unremarkable. Bones/joints: No acute osseous abnormality. Soft tissues: Multiple sebaceous cysts in the scalp. CT/CT head wo con* [id number] IMPRESSION: 1. No CT evidence of acute intracranial pathology. 2. Additional findings, as above.
--- NOTE | 2022-09-27 18:27 | ECG_ITS ---
[facility] Test Date: 2022-09-27 Pat Name: Azra Reyes Department: Room: Gender: Female Spreader: : 1970 Requested By: Dagoberto Juárez Order Number: [id number] David MD: Rafaela Lawrence M.D. Measurements Intervals [place] Rate: 56 P: 65 VT: 191 QRS: 73 QRSD: 91 T: 59 QT: 465 QTc: 452 Interpretive Statements SINUS BRADYCARDIA Compared to ECG 12/24/2019 17:41:39 Sinus rhythm no longer present Atrial abnormality no longer present ST (T wave) deviation no longer present Electronically Signed On 09-27-2022 18:58:56 CDT by Rafaela Lawrence M.D. [id number]
[2022-09-27] MEDS: sodium chloride 0.9% 1,000 ML 999 ML IV (18:55)
[2022-09-27] MEDS: ondansetron 2 mg/ML SDV 2 mL 4 MG IVP (18:55)
[2022-09-27 19:03] LABS: Basophils % 0.6 %; Eosinophils # 0.2 10^3/uL (0.0-0.8); Eosinophils % 2.4 %; Hematocrit 41.4 % (37.0-47.0); Hemoglobin 13.1 g/dL (11.5-15.3); Lymphocytes % 42.8 %; Mean Corpuscular HGB Conc 31.6 g/dL (30.0-36.0); Mean Corpuscular Hemoglobin 30.6 pg (28.0-34.0); Mean Corpuscular Volume 96.7 fl (81-99); Mean Platelet Volume 9.6 fL (7.4-10.4); Monocytes # 0.8 10^3/uL (0.2-0.9); Monocytes % 11.2 %; Neutrophils % 42.7 %; Nucleated Red Blood Cells % 0.3 %; Platelet Count 252 10^3/cmm (130-400); Red Blood Count 4.28 10^6/uL (4.1-5.3); Red Cell Distribution Width 13.5 % (12.1-15.1)
[2022-09-27] MEDS: ibuprofen 200 mg Tablet 400 MG PO (19:22)
[2022-09-27 19:33] LABS: Alanine Aminotransferase 9 U/L (0-33); Albumin Level 3.8 g/dL (3.5-5.2); Alkaline Phosphatase 63 U/L (35-105); Aspartate Amino Transferase 15 U/L (0-32); Blood Urea Nitrogen 18 mg/dL (6-20); Calcium 8.8 mg/dL (8.5-10.5); Carbon Dioxide 26 mmol/L (22-29); Chloride 107 mmol/L (98-107); Globulin 2.7 g/dL (1.3-4.6); Glomerular Filtration Rate 58.7 mL/min (90-130); Glucose 82 mg/dL (65-115); Osmolality Calculated 293 mOsm/kg (285-295); Sodium 141 mmol/L (136-145); Total Bilirubin 0.2 mg/dL (0.15-1.2); Total Protein 6.5 g/dL (6.6-8.7)
[2022-09-27 19:42] LABS: Alcohol Level < 10 mg/dL (0-10); Anion Gap 12.1 (5-19); Potassium 4.1 mmol/L (3.5-5.1)
== END 2022-09-27 20:32 | disposition home or self-care (01) ==
PROVIDERS: Emergency Provider Nurse Practitioner Family; PCP Nurse Practitioner Family
DX: S09.90XA Unspecified injury of head, initial encounter (principal); W19.XXXA Unspecified fall, initial encounter
CPT/HCPCS: 70450; 72125; 80053; 80307; 85025; 93005; 96374; 99285; J2405; J7030

== ENCOUNTER 2022-11-21 13:32 | Emergency (ER) | payer MEDICAID, SELFPAY ==
[2022-11-21 14:02] VITALS: BP 127/84; PULSE 76; RESP 18; TEMP 36.8; O2SAT 95; BMI 26.1
[2022-11-21] MEDS: aspirin 81 mg Chew Tablet 324 MG PO (14:05)
[2022-11-21 14:11] LABS: Basophils # 0.1 10^3/uL (0.0-0.1); Basophils % 0.7 %; Eosinophils % 0.4 %; Hematocrit 45.3 % (37.0-47.0); Hemoglobin 13.8 g/dL (11.5-15.3); Lymphocytes % 23.8 %; Mean Corpuscular HGB Conc 30.5 g/dL (30.0-36.0); Mean Corpuscular Hemoglobin 29.5 pg (28.0-34.0); Mean Corpuscular Volume 96.8 fl (81-99); Mean Platelet Volume 9.2 fL (7.4-10.4); Monocytes # 0.6 10^3/uL (0.2-0.9); Neutrophils # 5.76 10^3/uL (1.8-7.7); Neutrophils % 67.9 %; Nucleated Red Blood Cells % 0 %; Platelet Count 244 10^3/cmm (130-400); Red Blood Count 4.68 10^6/uL (4.1-5.3); Red Cell Distribution Width 13.4 % (12.1-15.1); White Blood Count 8.5 10^3/uL (4.0-10.0)
--- NOTE | 2022-11-21 14:12 | XRR_ITS ---
PROCEDURE INFORMATION: Exam: XR Cervical Spine Exam date and time: 11/21/2022 2:29 PM Age: 52 years old Clinical indication: Injury or trauma; Blunt trauma TECHNIQUE: Imaging protocol: Radiologic exam of the cervical spine. Views: 2 or 3 views. COMPARISON: CT cervical spin wo con* [id number] 09/27/2022 6:15 PM FINDINGS: Bones/joints: Cervical vertebral body appear maintained. Slight straightening of the cervical curvature on the lateral view and slight dextroscoliosis on the AP view. No fracture or subluxation is seen. Mild spondylotic change. Soft tissues: Prevertebral soft tissues show significant abnormality. XR/XR cervical spine 3V* [id number] IMPRESSION: No fracture or subluxation.
--- NOTE | 2022-11-21 14:12 | CT_ITS ---
WS: [id number] CT HEAD TECHNIQUE: Noncontrast CT of the head obtained from the skullbase to the vertex. CLINICAL INFORMATION: trauma COMPARISON: September 27, 2022 DLP: 1759.[address] scans at [facility] use at least one of these dose optimization techniques: automated e xposure control; mA and/or kV adjustment per patient size (includes targeted exams where dose is matc hed to clinical indication); or iterative reconstruction. FINDINGS: No evidence of intracranial hemorrhage or mass effect. Ventricular system and basal cisterns are dueñas nt. No extra-axial fluid collections. No evidence of mass or mass effect. Normal bates-white different iation. Paranasal sinuses and mastoid air cells are well aerated. .Normal visualized soft tissues. CT/CT head wo con* [id number] IMPRESSION: 1. No evidence of intracranial hemorrhage or mass effect. 2. No acute intracranial findings.
--- NOTE | 2022-11-21 14:12 | CT_ITS ---
WS: [id number] CT FACIAL BONES TECHNIQUE: Noncontrast facial bones with coronal and sagittal reformatted images. CLINICAL INFORMATION: trauma COMPARISON: None. DLP: 1759.[address] scans at [facility] use at least one of these dose optimization techniques: automated e xposure control; mA and/or kV adjustment per patient size (includes targeted exams where dose is matc hed to clinical indication); or iterative reconstruction. FINDINGS: Paranasal sinuses are well aerated. Mild mucosal thickening in the ethmoid air cells. Mastoid air tonya ls well aerated. Normal posterior nasopharynx. Normal parapharyngeal fat. Normal anterior nasal bones. Mild RIGHT to LEFT nasal septal deviation with leftward directed spur. P terygoid plates are normal. Zygoma are normal. No evidence of mandibular fracture dislocation. Normal lamina papyracea. Normal inferior orbits. No evidence of mandibular fracture dislocation. CT/CT facial bones wo con* [id number] IMPRESSION: No acute facial fractures.
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
[2022-11-21 14:37] LABS: Alanine Aminotransferase 11 U/L (0-33); Albumin Level 3.7 g/dL (3.5-5.2); Alkaline Phosphatase 66 U/L (35-105); Anion Gap 13.5 (5-19); Aspartate Amino Transferase 19 U/L (0-32); Blood Urea Nitrogen 10 mg/dL (6-20); Carbon Dioxide 21 mmol/L (22-29); Chloride 105 mmol/L (98-107); Globulin 2.9 g/dL (1.3-4.6); Glomerular Filtration Rate 75.9 mL/min (90-130); Glucose 85 mg/dL (65-115); Osmolality Calculated 278 mOsm/kg (285-295); Potassium 4.5 mmol/L (3.5-5.1); Salicylate 1.6 mg/dL (3-10); Sodium 135 mmol/L (136-145); Total Bilirubin 0.2 mg/dL (0.15-1.2); Total Protein 6.6 g/dL (6.6-8.7)
[2022-11-21 14:39] LABS: Acetaminophen < 5.0 ug/mL (10-30)
[2022-11-21 14:50] LABS: Troponin(5th) Baseline 6 ng/L (0-10)
[2022-11-21 14:55] LABS: Magnesium 2.1 mg/dL (1.7-2.3)
--- NOTE | 2022-11-21 16:13 | ECG_ITS ---
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 Measurements Intervals [place] Rate: 55 P: 68 GA: 171 QRS: 65 QRSD: 93 T: 56 QT: 433 QTc: 416 Interpretive Statements SINUS BRADYCARDIA Compared to ECG 09/27/2022 18:55:23 No significant changes Electronically Signed On 11-21-2022 21:24:59 CDT by Rafaela Lawrence M.D. [id number]
[2022-11-21] MEDS: acetaminophen 500 mg Tablet 1000 MG PO (17:14)
--- NOTE | 2022-11-21 17:40 | PC.NURSE ---
through out pts stay pt was continuously cussing out physician and staff. pt was calling names and making profane comments towards staff. pt was complaining of needs not being met. physician had been into pts room multiple times to assist her and answer questions.
--- NOTE | 2022-11-21 17:58 | PC.NURSE ---
physician explained importance of next cardiac enzyme draw and pt still refused to have lab drawn. pt was then offered continued care and she refused.
[2022-11-21 18:00] VITALS: BP 116/72; PULSE 72; O2SAT 96
== END 2022-11-21 17:55 | disposition left against medical advice (07) ==
PROVIDERS: Emergency Provider Family Medicine; PCP Nurse Practitioner Family
DX: S63.91XA Sprain of unspecified part of right wrist and hand, initial encounter (principal); F17.200 Nicotine dependence, unspecified, uncomplicated; Y04.2XXA Assault by strike against or bumped into by another person, initial encounter; Z79.899 Other long term (current) drug therapy; Z53.21 Procedure and treatment not carried out due to patient leaving prior to being seen by health care provider
CPT/HCPCS: 36415; 70450; 70486; 72040; 73130; 80053; 80307; 83735; 84484; 85025; 93005; 99285

== ENCOUNTER 2022-11-22 17:28 | Inpatient (IN) | payer MEDICAID, SELFPAY ==
[2022-11-22 17:39] VITALS: BP 134/83; PULSE 88; RESP 16; TEMP 37; O2SAT 99
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
[2022-11-22] MEDS: LORazepam 1 mg Tablet PO (18:24)
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
[2022-11-22 18:44] LABS: HCG Qualitative Urine. Negative (Negative)
[2022-11-22 18:50] LABS: Basophils % 0.6 %; Eosinophils % 0.2 %; Hematocrit 45.7 % (37.0-47.0); Hemoglobin 14.5 g/dL (11.5-15.3); Lymphocytes # 1.7 10^3/uL (0.8-4.8); Lymphocytes % 26.2 %; Mean Corpuscular HGB Conc 31.7 g/dL (30.0-36.0); Mean Corpuscular Hemoglobin 29.6 pg (28.0-34.0); Mean Corpuscular Volume 93.3 fl (81-99); Mean Platelet Volume 9.5 fL (7.4-10.4); Monocytes # 0.5 10^3/uL (0.2-0.9); Neutrophils # 4.24 10^3/uL (1.8-7.7); Neutrophils % 65.7 %; Nucleated Red Blood Cells % 0 %; Platelet Count 260 10^3/cmm (130-400); Red Cell Distribution Width 13.2 % (12.1-15.1); White Blood Count 6.5 10^3/uL (4.0-10.0)
[2022-11-22 18:53] VITALS: RESP 16; O2SAT 95
[2022-11-22] MEDS: methadone 10 mg Tablet PO (18:53)
[2022-11-22 19:23] VITALS: BP 148/89; PULSE 112; RESP 18; TEMP 36.9; O2SAT 96
[2022-11-22 19:27] LABS: Acetaminophen < 5.0 ug/mL (10-30); Alanine Aminotransferase 15 U/L (0-33); Albumin Level 4.2 g/dL (3.5-5.2); Alkaline Phosphatase 69 U/L (35-105); Anion Gap 17.9 (5-19); Aspartate Amino Transferase 26 U/L (0-32); Blood Urea Nitrogen 12 mg/dL (6-20); Calcium 9.3 mg/dL (8.5-10.5); Carbon Dioxide 22 mmol/L (22-29); Chloride 101 mmol/L (98-107); Glomerular Filtration Rate 88.6 mL/min (90-130); Glucose 84 mg/dL (65-115); Osmolality Calculated 283 mOsm/kg (285-295); Potassium 3.9 mmol/L (3.5-5.1); Salicylate < 0.3 mg/dL (3-10); Sodium 137 mmol/L (136-145); Total Bilirubin 0.3 mg/dL (0.15-1.2); Total Protein 7.2 g/dL (6.6-8.7)
[2022-11-22 19:28] LABS: Thyroid Stimulating Hormone 0.22 uIU/mL (0.27-4.20)
[2022-11-22 19:35] LABS: Alcohol Level < 10 mg/dL (0-10)
[2022-11-22 19:47] LABS: Add Urine Microscopic? NO; Charge for UA Resulting for Rev
[2022-11-22 19:50] LABS: Bilirubin Urine Neg (Negative); Blood Urine Neg (Negative); Glucose Urine UA Norm (Normal); Ketones Urine 3+ (Negative); Leukocyte Esterase Urine Negative (Negative); Nitrate Urine Negative (Negative); Protein Urine Neg (Negative); Urine Appearance Clear (CLEAR); Urine Color Yellow (Yellow); Urobilinogen Urine Norm (Negative); pH Urine 6 (5-7)
[2022-11-22] MEDS: nicotine 4 mg lozenge MUCOUS MEM (19:59)
[2022-11-22] MEDS: hyDROXYzine 25 mg Capsule 50 MG PO (19:59)
[2022-11-22] MEDS: trazodone 50 mg Tablet PO ×2 (19:59→21:20)
[2022-11-22 20:00] LABS: Amphetamines Screen Urine Negative (Negative); Barbiturates Screen Urine Negative (Negative); Benzodiazepines Screen Urine Negative (Negative); Cocaine Screen Urine Negative (Negative); Opiate Screen Urine Negative (Negative); PCP Screen Urine Negative (Negative); THC Screen Urine Positive (Negative)
[2022-11-22] MEDS: acetaminophen 325 mg Tablet 650 MG PO (20:11)
[2022-11-22 20:36] VITALS: BP 148/89; PULSE 112; RESP 18; TEMP 36.9; O2SAT 18
--- NOTE | 2022-11-22 21:32 | ECG_ITS ---
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 Measurements Intervals [place] Rate: 80 P: 36 AR: 166 QRS: 44 QRSD: 89 T: 31 QT: 386 QTc: 446 Interpretive Statements SINUS RHYTHM LOW QRS VOLTAGE IN EXTREMITY LEADS [QRS DEFLECTION < 0.5 mV IN LIMB LEADS] Compared to ECG 11/21/2022 14:45:23 Low QRS voltage now present Sinus bradycardia no longer present Electronically Signed On 11-22-2022 23:29:59 CDT by Yinka Perez M.D. [id number]
[2022-11-23 06:00] VITALS: RESP 16
--- NOTE | 2022-11-23 06:34 | PC.NURSE ---
Did not obtain patients vitals per Charge Nurse.
[2022-11-23] MEDS: ondansetron 4 MG Tablet PO ×3 (08:17→08:34)
[2022-11-23] MEDS: nicotine 4 mg lozenge MUCOUS MEM ×3 (08:17→16:34)
[2022-11-23 10:53] VITALS: RESP 16; O2SAT 94
[2022-11-23] MEDS: methadone 10 mg Tablet 135 MG PO (10:53)
[2022-11-23] MEDS: promethazine 25 mg/mL SDV 1 mL IM (11:40)
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
[2022-11-23 14:00] VITALS: BP 109/71; PULSE 67; RESP 18; TEMP 36.7; O2SAT 94
[2022-11-23] MEDS: potassium chloride ER 20 mEq Tablet PO (14:35)
[2022-11-23] MEDS: FUROsemide 20 mg Tablet PO (14:35)
[2022-11-23] MEDS: gabapentin 400 mg Capsule PO ×2 (14:39→20:18)
[2022-11-23] MEDS: acetaminophen 325 mg Tablet 650 MG PO ×2 (15:37→21:55)
[2022-11-23] MEDS: aspirin 81 mg EC Tablet PO (15:41)
[2022-11-23] MEDS: oxybutynin chloride XL 5 MG TABLET PO (15:58)
--- NOTE | 2022-11-23 17:11 | PC.NURSE ---
patient gave written consent to have blood that is being held in lab for testing of HIV and Hepatitis Panel
[2022-11-23 18:06] LABS: HIV 1 & 2 Antigen Non-Reactive (Non-Reactiv)
[2022-11-23 18:07] LABS: HIV 1 & 2 Antibody Non-Reactive (Non-Reactiv)
[2022-11-23] MEDS: nicotine 2 mg Gum BUCCAL (21:14)
[2022-11-23] MEDS: trazodone 50 mg Tablet PO ×2 (21:14→22:31)
[2022-11-23 21:31] VITALS: RESP 17
[2022-11-23 22:13] LABS: Hepatitis A Antibody IgM Non-Reactive (Nonreactive); Hepatitis B Core AB, Total Reactive (Nonreactive); Hepatitis B Surface AB 655.6 (11.5-1000); Hepatitis B Surface Antigen Non-Reactive (Nonreactive); Hepatitis C Virus Antibody Reactive (Nonreactive)
[2022-11-24 06:00] VITALS: RESP 16
[2022-11-24] MEDS: aspirin 81 mg EC Tablet PO (09:18)
[2022-11-24] MEDS: FUROsemide 20 mg Tablet PO (09:18)
[2022-11-24] MEDS: oxybutynin chloride XL 5 MG TABLET PO (09:19)
[2022-11-24] MEDS: gabapentin 400 mg Capsule PO ×3 (09:19→20:24)
[2022-11-24] MEDS: acetaminophen 325 mg Tablet 650 MG PO ×2 (09:19→15:46)
[2022-11-24] MEDS: nicotine 21 mg Patch 1 PATCH TRANSDERMA (09:19)
[2022-11-24] MEDS: potassium chloride ER 20 mEq Tablet PO (09:19)
[2022-11-24 09:21] VITALS: RESP 16; O2SAT 94
[2022-11-24] MEDS: methadone 10 mg Tablet 135 MG PO (09:21)
[2022-11-24 14:00] VITALS: BP 98/67; PULSE 62; RESP 20; TEMP 36.6; O2SAT 92
--- NOTE | 2022-11-24 14:56 | PC.NURSE ---
patient up for a shower, did not like the temperature of the water. Stated it was too hot. Patient was given the option to go to another shower where the temperature could be controlled. She chose to stay in her room and wash in there.
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
[2022-11-24] MEDS: trazodone 50 mg Tablet PO (20:25)
--- NOTE | 2022-11-24 20:36 | PC.NURSE ---
PT IN BED, DOES GET UP FOR PM MEDICATIONS. PT IS EVASIVE WITH ASSESSMENT QUESTIONS, ONLY ANSWERS YES OR NO. PT DENIES PAIN. DENIES SI/HI AND AVH AT THIS TIME. PT DID REQUEST TRAZODONE TO HELP HER SLEEP. TRAZODONE 50 MG WAS GIVEN ORDERED. PT WENT BACK TO ROOM TO LAY DOWN AND IS CURRENTLY IN BED RESTING.
[2022-11-24 22:00] VITALS: BP 105/58; PULSE 68; RESP 16; TEMP 36.8; O2SAT 95
[2022-11-25 06:00] VITALS: BP 92/61; PULSE 57; RESP 18; O2SAT 98
[2022-11-25] MEDS: potassium chloride ER 20 mEq Tablet PO (08:36)
[2022-11-25] MEDS: gabapentin 400 mg Capsule PO (08:36)
[2022-11-25] MEDS: aspirin 81 mg EC Tablet PO (08:36)
[2022-11-25] MEDS: FUROsemide 20 mg Tablet PO (08:36)
[2022-11-25] MEDS: oxybutynin chloride XL 5 MG TABLET PO (08:37)
[2022-11-25] MEDS: methadone 10 mg Tablet 135 MG PO (08:37)
[2022-11-25] MEDS: ibuprofen 600 mg Tablet PO (08:58)
[2022-11-25] MEDS: nicotine 21 mg Patch 1 PATCH TRANSDERMA (09:05)
[2022-11-25 13:15] LABS: HEP C RNA Viral Load Quant <1.18 NOT DETECTED Log IU/mL (NOT DETECTED); HEP C RNA Viral Load Quant <15 NOT DETECTED IU/mL (NOT DETECTED)
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
[2022-11-25 13:23] VITALS: BP 92/61; PULSE 57; RESP 18; O2SAT 98
[2022-11-25 14:00] VITALS: BP 106/65; PULSE 77; RESP 17; TEMP 36.8; O2SAT 91
== END 2022-11-25 14:54 | disposition home or self-care (01) | DRG 885 ==
LOC: ER 17:49 → NP 18:28
PROVIDERS: Nurse Practitioner Family; Admitting Provider Psychiatry & Neurology Psychiatry; Emergency Provider Emergency Medicine; PCP Nurse Practitioner Family; Visit Provider Psychiatry & Neurology Psychiatry
DX: F33.9 Major depressive disorder, recurrent, unspecified (principal); R45.851 Suicidal ideations; Z59.00 Homelessness unspecified; F17.210 Nicotine dependence, cigarettes, uncomplicated; G40.909 Epilepsy, unspecified, not intractable, without status epilepticus; Z79.82 Long term (current) use of aspirin; F15.11 Other stimulant abuse, in remission; F11.21 Opioid dependence, in remission
CPT/HCPCS: 80053; 80306; 80307; 81003; 81025; 84443; 85025; 86705; 86706; 86709; 86803; 87340; 87522; 87806; 93005; 96372; 97150; 97165; 99238; 99285; J2550; Q0162

== ENCOUNTER → 2023-08-29 08:56 | Outpatient (BNVA) | payer MEDICAID, SELFPAY | PROVIDERS: PCP Nurse Practitioner Family; Referring Provider Nurse Practitioner Family; Visit Provider Specialist | DX: G43.711 Chronic migraine without aura, intractable, with status migrainosus (principal); G40.909 Epilepsy, unspecified, not intractable, without status epilepticus; R29.90 Unspecified symptoms and signs involving the nervous system | CPT/HCPCS: 99204; 99205 ==

== ENCOUNTER → 2023-11-14 14:49 | Outpatient (BNVA) | payer MEDICAID, SELFPAY | PROVIDERS: PCP Nurse Practitioner Family; Visit Provider Nurse Practitioner Family | DX: R00.2 Palpitations (principal); F15.91 Other stimulant use, unspecified, in remission; R55 Syncope and collapse; F12.20 Cannabis dependence, uncomplicated | CPT/HCPCS: 93005 ==

== ENCOUNTER → 2024-01-15 13:30 | Outpatient (BNVA) | payer MEDICAID, SELFPAY | PROVIDERS: PCP Nurse Practitioner Family; Visit Provider Internal Medicine Cardiovascular Disease | DX: R07.2 Precordial pain (principal); R06.02 Shortness of breath; Z71.6 Tobacco abuse counseling; I87.2 Venous insufficiency (chronic) (peripheral); F17.200 Nicotine dependence, unspecified, uncomplicated | CPT/HCPCS: 99204 ==

== ENCOUNTER 2024-02-14 06:46 | Outpatient (CLI) | payer MEDICAID, SELFPAY ==
--- NOTE | 2024-02-14 | ECG_ITS ---
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 Interpretive Statements LEXISCAN SESTAMIBI STRESS TEST Procedure: At the baseline, the blood pressure was 102/80 mmHg with a heart rate of 54 bpm. The electrocardiogram showed sinus bradycardia, normal axis with normal ST and T's. The Lexiscan was infused over a period of 20 seconds. A total of 0.4 mg of Lexiscan was infused. The stress phase was continued for a total of 5 minutes. Heart rate was at the end of stress phase was 72 bpm and a blood pressure of 155/90 mmHg. The EKG at the peak infusion revealed normal sinus rhythm with no significant ST-T wave changes. Sestamibi was injected 20 seconds after the Lexiscan infusion. Blood pressure at the end of recovery phase was 113/72 mmHg with a heart rate of 54 bpm. Conclusion: 1. Normal EKG response to Lexiscan infusion 2. No Lexiscan induced chest pain or cardiac arrhythmia. 3. Normal blood pressure and heart rate response. 4. Sestamibi/sestamibi perfusion scan pending; see separate report. Electronically Signed On 02-15-2024 10:34:52 CDT by Yinka Perez M.D. [email or web address]
[2024-02-14 06:57] VITALS: BMI 28.2
--- NOTE | 2024-02-14 07:07 | NMCV_ITS ---
NM gabriel perf SPECT r/s* [id number] Azra Reyes Age: 53 Gender: F : 1970 Exam Date: 02/14/2024 07:51 Ordering Phys: Nacho Witt MD ([email or web address]) Technologist: BANDAR Jc Exam Location: [facility] Indications: cp STRESS TEST [facility] IMAGE PROTOCOL Rest/Stress 1 Lexiscan Day Radiopharmaceutical Dose (mCi) Administration Site Administered by Rest: Tc-99m 10.8 IV BANDAR Jc Sestamibi Stress:Tc-99m 32.5 IV BANDAR Brown Sestamibi Rest: 14-Feb-2024 60 Discovery 630 Stress: 14-Feb-2024 30 Discovery 630 0.4mg Lexiscan. Images obtained in supine and prone position. SPECT RESULTS Technical Quality: Good Raw Data Analysis: Patient was scanned multiple times , best images taken have been sent. Due to patient medication bowl clearance was affected. Image Corrections: Summed Stress Score: 0 Summed Rest Score: 2 Summed Difference Score: 0 PERFUSION FINDINGS Small area of fixed perfusion fat noted in the apex of the left ventricle possible due to apical thinning artifact FUNCTIONAL RESULTS (calculated via Gated SPECT) Stress Image LV EF (%): 71 Stress EDV (mL):103 TID: 1.05 Stress ESV (mL):30 FUNCTIONAL FINDINGS: There is normal left ventricular systolic function. IMPRESSIONS Myocardial perfusion imaging is normal. EKG segment will be documented separately. Nacho Witt MD (Electronically Signed) Final Date: 15 February 2024 21:12 S
[2024-02-14] MEDS: regadenoson 0.4 Mg/5 ml Syringe IVP (10:08)
[2024-02-14] MEDS: aminophylline 25 mg/mL SDV 10 mL IVP ×3 (10:08→10:12)
[2024-02-14 10:16] VITALS: BP 113/72; PULSE 55
== END 2024-02-14 06:47 | disposition home or self-care (01) ==
PROVIDERS: PCP Nurse Practitioner Family; Visit Provider Internal Medicine Cardiovascular Disease
DX: R07.9 Chest pain, unspecified (principal)
CPT/HCPCS: 36415; 78452; 93017; 96374; 96375; A9500; J0280; J2785

== ENCOUNTER 2024-02-15 08:21 | Outpatient (CLI) | payer MEDICAID, SELFPAY ==
--- NOTE | 2024-02-15 08:30 | USCV_ITS ---
Azra Reyes Age: 53 Gender: F : 1970 Exam Date: 02/15/2024 08:41 Ordering Phys: Nacho Witt MD ([email or web address]) Technologist: AVE [place]am Location[place] [facility] [place] Indication: CHEST PAIN BP: 131 / 84 HR: 59 Rhythm: Sinus Technical Quality: Adequate MEASUREMENTS (Male / Female) Normal Values 2D ECHO LV Diastolic Diameter PLAX 4.3 cm 4.2 - 5.9 / 3.9 - 5.3 cm IVS Diastolic Thickness 1.2 cm 0.6 - 1.0 / 0.6 - 0.9 cm IVS Systolic Thickness 1.5 cm LVPW Diastolic Thickness 1.8 cm 0.6 - 1.0 / 0.6 - 0.9 cm LVPW Systolic Thickness 2.2 cm LVOT Diameter 2.0 cm LV Ejection Fraction 2D Teich 61.8 % LV Ejection Fraction MOD 4C 64.8 % LV Ejection Fraction MOD 2C 64.7 % LV Ejection Fraction 2C AL 63.4 % LA Diameter 2.5 cm RA Systolic Volume 4C AL 20.4 ml RA Systolic Volume 4C MOD 20.1 ml LA Sys Volume AL 25.9 cm cubed LA Sys Volume Index AL 12.9 cm cubed/m squared Aorta at Sinotubular Diameter 2.1 cm IVC Diameter 1.2 cm M-MODE LA Ao Ratio MM 0.9 AV Cusp Separation MM 1.9 cm DOPPLER AV Peak Velocity 133.0 cm/s LVOT Peak Velocity 122.0 cm/s AV Area Cont Eq vti 3.2 cm squared AV Area Cont Eq pk 2.9 cm squared MV Peak Velocity 96.0 cm/s MV Area PHT 3.5 cm squared Mitral E to A Ratio 1.1 TR Peak Velocity 146.0 cm/s TR Peak Gradient 8.5 mmHg TR Mean Velocity 111.0 cm/s TR Mean Gradient 5.4 mmHg TR Velocity Time Integral 41.6 cm TV Peak E Velocity 43.0 cm/s Right Atrial Pressure 3.0 mmHg Pulmonary Artery Systolic Pressu 11.5 mmHg PV Peak Velocity 98.0 cm/s RV Ejection Time 0.3 s FINDINGS Left Ventricle Normal left ventricular size, systolic function and wall thickness, with no regional wall motion abnormalities. Left ventricular ejection fraction is estimated at 60 %. Grade I/IV diastolic dysfunction (abnormal relaxation filling pattern), normal to mildly elevated filling pressures. Right Ventricle The right ventricle is normal in size and function. Right Atrium The right atrium is normal in size. Left Atrium The left atrium is normal in size. Mitral Valve Structurally normal mitral valve without significant stenosis or prolapse. There is trace mitral regurgitation. Aortic Valve Structurally normal aortic valve without significant sclerosis or stenosis. There is no aortic regurgitation. Tricuspid Valve Structurally normal tricuspid valve without significant stenosis or regurgitation. Pulmonary artery systolic pressure is normal. Pulmonic Valve Structurally normal pulmonic valve without significant stenosis. There is no pulmonic regurgitation. Pericardium Normal pericardium without effusion. Aorta Normal ascending aorta dimension. IVC The inferior vena cava appears normal. CONCLUSIONS Normal left ventricular size, systolic function and wall thickness, with no regional wall motion abnormalities. Left ventricular ejection fraction is estimated at 60 %. Grade I/IV diastolic dysfunction (abnormal relaxation filling pattern), normal to mildly elevated filling pressures. No significant valve abnormalities. There is no pericardial effusion. Pulmonary artery systolic pressure is within normal limits. Right atrial pressure is around 5 mm of mercury. Nacho Witt MD (Electronically Signed) Final Date: 17 February 2024 13:50 S
== END 2024-02-15 08:22 | disposition home or self-care (01) ==
LOC: RAD 08:21
PROVIDERS: PCP Nurse Practitioner Family; Visit Provider Internal Medicine Cardiovascular Disease
DX: I50.30 Unspecified diastolic (congestive) heart failure (principal); R06.02 Shortness of breath
CPT/HCPCS: 93306

== ENCOUNTER → 2024-04-03 14:31 | Outpatient (BNVA) | payer MEDICAID, SELFPAY | PROVIDERS: PCP Nurse Practitioner Family; Visit Provider Internal Medicine Cardiovascular Disease | DX: I11.0 Hypertensive heart disease with heart failure (principal); I50.9 Heart failure, unspecified; E78.5 Hyperlipidemia, unspecified; J45.909 Unspecified asthma, uncomplicated; Z72.0 Tobacco use; I83.90 Asymptomatic varicose veins of unspecified lower extremity | CPT/HCPCS: 99213 ==

== ENCOUNTER → 2024-06-03 11:34 | Outpatient (BNVA) | payer MEDICAID, SELFPAY | PROVIDERS: PCP Nurse Practitioner Family; Visit Provider Nurse Practitioner Family | DX: R10.2 Pelvic and perineal pain (principal); Z78.9 Other specified health status | CPT/HCPCS: 88175 ==

== ENCOUNTER → 2024-06-12 09:40 | Outpatient (BNVA) | payer MEDICAID, SELFPAY | PROVIDERS: PCP Nurse Practitioner Family; Visit Provider Nurse Practitioner Family | DX: N39.0 Urinary tract infection, site not specified (principal) | CPT/HCPCS: 81000; 87086 ==

== ENCOUNTER → 2024-07-22 16:44 | Outpatient (BNVA) | payer MEDICAID, SELFPAY | PROVIDERS: PCP Nurse Practitioner Family; Visit Provider Obstetrics & Gynecology | DX: R87.612 Low grade squamous intraepithelial lesion on cytologic smear of cervix (LGSIL) (principal) | CPT/HCPCS: 88305 ==

== ENCOUNTER → 2024-08-14 10:39 | Outpatient (BNVA) | payer MEDICAID, SELFPAY | PROVIDERS: PCP Nurse Practitioner Family; Visit Provider Obstetrics & Gynecology | DX: R87.619 Unspecified abnormal cytological findings in specimens from cervix uteri (principal) | CPT/HCPCS: 76830 ==

== ENCOUNTER → 2024-10-04 10:15 | Outpatient (BNVA) | payer MEDICAID, SELFPAY | PROVIDERS: PCP Nurse Practitioner Family; Visit Provider Nurse Practitioner Family | DX: I10 Essential (primary) hypertension (principal); R53.83 Other fatigue | CPT/HCPCS: 80053; 80061; 85025 ==

== ENCOUNTER 2025-02-20 13:51 | Outpatient (CLI) | payer MEDICAID, SELFPAY ==
--- NOTE | 2025-02-20 13:59 | MR_ITS ---
WS: [id number] MRI LEFT KNEE HISTORY: HEMARTHROSIS OF L KNEE/INTERNAL DERANGEMENT OF L KNEE COMPARISON: None available. Anterior cruciate ligament: Intact. Posterior cruciate ligament: Intact. Medial collateral ligament: Fluid and edema surrounds the MCL. No tear identified. Posterior lateral corner structures: Intact. Medial menisci: Intact. Normal signal, size and shape. Lateral meniscus: Intact. Normal signal, size and shape. Extensor mechanism: Distal quadriceps tendon and patellar tendons are intact. Fluid and soft tissue: No joint effusion. There is a small amount of fluid in the Gilliland's cyst. Soft tissue edema and contusion along the medial femoral condyle. Fluid and blood extends inferiorly along the medial head of the gastrocnemius. There is infiltrating edema extending posterior to the knee joint. There is abnormal signal in the distal adductor bryanna tendon where it attaches to the adductor tubercle of the medial femoral condyle. There is a partial tear suspected along with soft tissue injury. Seen only on a few sequences is intermediate signal near the adductor tubercle measuring 5.4 mm which may represent a tiny avulsion fracture. This abnormal signal is at the site of the medial head of the gastrocnemius insertion. There is fluid at the insertion site suggesting a partial tear. This is in close association with the abnormal adductor bryanna tendon. Osseous and articular structures: Patellofemoral compartment: Small amount of fluid extending along the medial patellar retinaculum. Medial compartment: Mild narrowing of the joint space and very mild thinning of the cartilage. No marrow edema. Lateral compartment: Negative. MR/MR knee LT wo con* [id number] IMPRESSION: 1. Large amount of soft tissue contusion with edema and hematoma centered over the medial femoral condyle and medial knee. 2. Suspected partial tear of the adductor bryanna tendon at its insertions to t he adductor tubercle. 3. Additional partial tear associated with the insertion site of the medial he ad of the gastrocnemius along the medial femoral condyle. 4. Possible tiny avulsion fracture measuring 5.4 mm near the medial head of th e gastrocnemius insertion site. This is only seen on a few sequences. This can be confirmed by CT if clinically thought necessary. 5. Fluid along the medial patellar retinaculum but no obvious tear identified. 6. Fluid along the entire MCL. No definite tear identified.
== END 2025-02-20 13:52 | disposition home or self-care (01) ==
LOC: RAD 13:55
PROVIDERS: PCP Nurse Practitioner Family; Visit Provider Neurological Surgery
DX: M25.062 Hemarthrosis, left knee (principal); S80.02XA Contusion of left knee, initial encounter; S86.812A Strain of other muscle(s) and tendon(s) at lower leg level, left leg, initial encounter; X58.XXXA Exposure to other specified factors, initial encounter; R60.0 Localized edema; R93.6 Abnormal findings on diagnostic imaging of limbs; M71.22 Synovial cyst of popliteal space [Baker], left knee
CPT/HCPCS: 73721

== ENCOUNTER → 2025-03-05 11:01 | Outpatient (BNVA) | payer MEDICAID, SELFPAY | PROVIDERS: PCP Nurse Practitioner Family; Visit Provider Obstetrics & Gynecology | DX: R87.612 Low grade squamous intraepithelial lesion on cytologic smear of cervix (LGSIL) (principal) | CPT/HCPCS: 87624 ==

== ENCOUNTER → 2025-03-31 11:26 | Outpatient (BNVA) | payer MEDICAID, SELFPAY | PROVIDERS: PCP Nurse Practitioner Family; Referring Provider Nurse Practitioner Family; Visit Provider Orthopaedic Surgery | DX: S86.112A Strain of other muscle(s) and tendon(s) of posterior muscle group at lower leg level, left leg, initial encounter (principal); S83.412A Sprain of medial collateral ligament of left knee, initial encounter; X58.XXXA Exposure to other specified factors, initial encounter; M25.462 Effusion, left knee | CPT/HCPCS: 99204 ==

== ENCOUNTER → 2025-04-03 13:50 | Outpatient (BNVA) | payer MEDICAID, SELFPAY | PROVIDERS: PCP Nurse Practitioner Family; Visit Provider Internal Medicine Cardiovascular Disease | DX: I11.0 Hypertensive heart disease with heart failure (principal); I50.32 Chronic diastolic (congestive) heart failure; F17.200 Nicotine dependence, unspecified, uncomplicated | CPT/HCPCS: 99214 ==